=== PATIENT | female | born 1995 | race African-American/Black ===

== ENCOUNTER 2018-07-20 21:47 | Emergency (ER) | payer OTHER ==
[2018-07-20 21:52] VITALS: BP 140/74; PULSE 64; TEMP 98.4; BMI 34.9
[2018-07-21] MEDS ORDERED: ACETAMINOPHEN 1000 MG/100 ML VIAL (NON FORMULARY) IVPB ONE (01:20)
--- NOTE | 2018-07-21 01:21 | PDOC ---
History of Present Illness - General Chief Complaint: Chest Pain Stated Complaint: CHEST PAIN Time Seen by Provider: 07/21/18 00:42 - History of Present Illness Initial Comments: 23 yo F w a hx of asthma, ITP, pre-eclampsia here with 3 hours of chest pain described as pressure like with mild radiation to the jaw. She also experiences pain upon deep inspiration and has difficultly taking a deep breath. She states the pain is associated with nausea but no emesis. She denies diaphoreiss. Of note - She also states she has significant dyspnea with exertion, and has needed to sleep with 2 to 3 pillows at night otherwise she feels like she is choking. Denies recent fevers, chills, infections. Denies back pain, abdominal pain, urinary or bowel complaints. Allergies: sulfa drugs, peanuts, dairy foods. PCP: None Social Hx: Denies alcohol, cigarette, or illicit drug use. Past History - Past Medical History Allergies/Adverse Reactions: Allergies Allergy/AdvReac Type Severity Reaction Status Date / Time No Known Allergies Allergy Verified 07/20/18 21:52 Asthma: Yes COPD: No Other medical history: ITP - Suicide/Smoking/Psychosocial Hx Smoking History: Never smoked Review of Systems - Review of Systems Comments:: CONSTITUTIONAL: Absent: fever, no chills, no fatigue EYES: Absent: visual changes ENT: Absent: ear pain, no sore throat CARDIOVASCULAR: Present: chest pain, palpitations RESPIRATORY: Present: SOB Absent: cough GI: Present: Nausea Absent: abdominal pain, no vomiting, no constipation, no diarrhea GENITOURINARY: Absent: dysuria, no frequency, no hematuria MUSKULOSKELETAL: Absent: back pain, no arthralgia, no myalgia SKIN: Absent: rash NEURO: Absent: headache *Physical Exam - Vital Signs Last Vital Signs Temp Pulse Resp BP Pulse Ox 98.4 F 64 18 140/74 97 07/20/18 21:50 07/20/18 21:50 07/20/18 21:50 07/20/18 21:50 07/20/18 21:50 - Physical Exam Comments: GENERAL: Well-appearing, well-nourished. No apparent distress. HEENT: Normocephalic, atraumatic. PERRL, EOM intact. CARDIOVASCULAR: Normal S1, S2. Regular rate and rhythm. PULMONARY: Clear to auscultation bilaterally. ABDOMEN: Soft, non-distended, non-tender. EXTREMITIES: Normal ROM in all four extremities. No gross deformities. SKIN: Warm, dry. No rash NEUROLOGICAL: No focal neurological deficits. ED Treatment Course - LABORATORY CBC & Chemistry Diagram: 07/21/18 01:48 07/21/18 01:48 Medical Decision Making - Medical Decision Making 23 yo F w a hx of asthma, ITP, pre-eclampsia here with 3 hours of chest pain, SOB, dyspnea w exertion. DD inlcludes but not limited to: ACS, pneumothorax, heart failure, MSK pain, heart failure. Plan: Cbc, Cmp, trop, bnp, dimer, ekg, acetaminophen, CXR, re-assess. EKG - normal sinus. No signs of ACS. Labs unremarkable. Trop negative. Chest pain went away after tylenol. Patient is still mildly short of breath. Will give duoneb and see if her SOB resolves. Patient is no longer SOB after duoneb. Will DC w referall for a PCP . This was likely an asthma exacerbation. *DC/Admit/Observation/Transfer Diagnosis at time of Disposition: Chest pain, Dyspnea, Asthma exacerbation - Discharge Dispostion Disposition: HOME Condition at time of disposition: Improved Decision to Admit order: No - Referrals Referrals: Tony Warren MD [Staff Physician] - - Patient Instructions Printed Discharge Instructions: Asthma -- Child, DI for Chest Pain Additional Instructions: You came into the ER with chest pain and shortness of breath. We believe you were having an asthma exacerbation here in the ER. Please make sure to schedule a follow up appointment with a primary care doctor in the next 3 to 5 days. We are giving you the number for one you can call and schedule an appointment with. Come back to the emergency room if you experience worsening chest pain, SOB, difficulty breathing or any other concerns. Thank you for coming to the [facility] ER. We hope you feel better soon! Print Language: BENGALI - Post Discharge Activity
[2018-07-21] MEDS ORDERED: ACETAMINOPHEN INJECTION 100 ML IVPB ONE (01:32)
--- NOTE | 2018-07-21 01:42 | PDOC ---
Attending Attestation - Resident Resident Name: Hiren Lindsey - ED Attending Attestation I have performed the following: I have examined & evaluated the patient, The case was reviewed & discussed with the resident, I agree w/resident's findings & plan, Exceptions are as noted - HPI HPI: 07/21/18 01:40 23 yo female dev substernal chest pain radiating to her left jaw tonight PMH Childbirth w induced vaginal delivery due to pre esclapsia - Physicial Exam PE: 07/21/18 01:42 wnwd 23 yo female with chest pain head ncat neck supple, no jvd lungs cta b/l cvs [id number] abd nontender extremities no edema skin warm and dry neuro axox3,ambulatory,no gross focal neuro deficits psych appropriate - Medical Decision Making 07/21/18 16:[address] Walter pending cxr which was negative IMP atypical chest pain
[2018-07-21 01:56] LABS: BASO % 0.7 % (0-2.0); EOS % 5.1 % (0-4.5); HEMATOCRIT 39.2 % (32.4-45.2); HEMOGLOBIN 12.6 GM/dL (10.7-15.3); LYMPH % 23.4 % (8-40); MCH 28.3 pg (25.7-33.7); MCHC 32.2 g/dl (32.0-36.0); MEAN CELL VOLUME 87.9 fl (80-96); MEAN PLT VOLUME 10.8 fl (7.5-11.1); MONO % 6.8 % (3.8-10.2); PLATELET COUNT 145 K/MM3 (134-434); RBC 4.47 M/mm3 (3.60-5.2); RDW 13.9 % (11.6-15.6); WHITE BLOOD COUNT 13.5 K/mm3 (4.0-10.0)
[2018-07-21 02:21] LABS: ALBUMIN 3.3 g/dl (3.4-5.0); ALK PHOS 168 U/L (45-117); ANION GAP 7 MMOL/L (8-16); BILIRUBIN,TOTAL 0.2 mg/dL (0.2-1); BLOOD UREA NITROGEN 10 mg/dL (7-18); CALCIUM 8.6 mg/dL (8.5-10.1); CHLORIDE 109 mmol/L (98-107); CO2 25 mmol/L (21-32); CREATININE 0.8 mg/dL (0.55-1.3); GLUCOSE,RANDOM 82 mg/dL (74-106); N-TERMINAL BNP 58.2 pg/ml (5-125); POTASSIUM 3.5 mmol/L (3.5-5.1); SGOT/AST 16 U/L (15-37); SGPT/ALT 25 U/L (13-61); SODIUM 141 mmol/L (136-145); TOT PROT 7.5 g/dl (6.4-8.2)
[2018-07-21] MEDS ORDERED: ALBUTEROL SO4 2.5/IPRATROPIUM 0.5 INH SOL 3 ML VIAL.NEB. NEB ONE ×2 (03:11→03:20)
--- NOTE | 2018-07-21 12:34 | EKG ---
Test Reason : Blood Pressure : / mmHG Vent. Rate : 093 BPM Atrial Rate : 093 BPM P-R Int : 132 ms QRS Dur : 082 ms QT Int : 340 ms P-R-T Axes : 059 084 044 degrees QTc Int : 422 ms NORMAL SINUS RHYTHM NORMAL ECG Confirmed by MD SHAWN, ABDIEL ([id number]) on 07/21/2018 12:34:07 PM Referred By: Confirmed By:ABDIEL ESCOBAR MD
== END 2018-07-21 04:14 | disposition home or self-care (01) ==
LOC: JER 21:47
PROC: 3E0F7GC Introduction of Other Therapeutic Substance into Respiratory Tract, Via Natural or Artificial Opening (ICD-10-PCS; principal; 2018-07-20)
PROC: 3E033NZ Introduction of Analgesics, Hypnotics, Sedatives into Peripheral Vein, Percutaneous Approach (ICD-10-PCS; 2018-07-20)
DX: J45.901 Unspecified asthma with (acute) exacerbation (principal)
CPT/HCPCS: 36415; 71046-TC-FY; 80053; 83880; 84484; 84703; 85025; 85379; 93005; 93010; 94640; 96374; 99281-25; J0131

== ENCOUNTER 2018-12-12 23:39 | Emergency (ER) | payer OTHER ==
[2018-12-12 23:53] VITALS: BMI 37.2
[2018-12-13] MEDS ORDERED: SODIUM CHLORIDE 1,000 ML IV STA ×2 (00:18→03:45)
[2018-12-13] MEDS ORDERED: ACETAMINOPHEN 1000 MG/100 ML VIAL (NON FORMULARY) IVPB ONE (00:19)
--- NOTE | 2018-12-13 00:31 | PDOC ---
History of Present Illness - General Chief Complaint: Back Pain Stated Complaint: LOWER BACK PAIN Time Seen by Provider: 12/12/18 23:52 History Source: Patient Exam Limitations: No Limitations - History of Present Illness Travel History: No Initial Comments: 12/13/18 00:26 HISTORY OF PRESENT ILLNESS: 23-year-old woman without significant medical history presents emergency department for evaluation of right mid back pain radiating to her right upper quadrant with nausea and vomiting. Patient reports the pain is been present for the past 3 days been waxing and waning has been more consistent over the past 24 hours. Patient reports she began to feel nauseous and vomited this afternoon. She denies any blood or bile in the vomit and reports was undigested food. Patient has not taken anything for the pain prior to arrival. She denies fevers, chills, hematuria, dysuria. No recent travel or sick contacts. PAST MEDICAL HISTORY: Denies past medical history SURGICAL HISTORY: Denies ALLERGIES: No known drug allergies REVIEW OF SYSTEMS General/Constitutional: Denies fever or chills. Denies weakness, weight change. HEENT: Denies change in vision. Denies ear pain or discharge. Denies sore throat. Cardiovascular: Denies chest pain or shortness of breath. Respiratory: Denies cough, wheezing, or hemoptysis. Gastrointestinal: see HPI Genitourinary: Denies dysuria, frequency, or change in urination. Musculoskeletal: Denies joint or muscle swelling or pain. Denies neck or back pain. Skin and breasts: Denies rash or easy bruising. Neurologic: Denies headache, vertigo, loss of consciousness, or loss of sensation. Psychiatric: Denies depression or anxiety. Endocrine: Denies increased thirst. Denies abnormal weight change. Hematologic/Lymphatic: Denies anemia, easy bleeding, or history of blood clots. Allergic/Immunologic: Denies hives or skin allergy. Denies latex allergy. PHYSICAL EXAM General Appearance: Well-appearing, appropriately dressed. No apparent distress , no intoxication. HEENT: EOMI, PERRLA, normal ENT inspection, normal voice, TMs normal, pharynx normal. No conjunctival pallor. No photophobia, scleral icterus. Neck: Supple. Trachea midline. No tenderness, rigidity, carotid bruit, stridor , lymphadenopathy, or thyromegaly. Respiratory/Chest: Lungs CTAB. No shortness of breath, chest tenderness, respiratory distress, accessory muscle use. No crackles, rales, rhonchi, stridor , wheezing, dullness Cardiovascular: RRR. S1, S2. No JVD, murmur, bradycardia, tachycardia. Vascular Pulses: Dorsalis-Pedis (R): 2+, Dorsalis-Pedis (L): 2+ Gastrointestinal/Abdominal: Normal bowel sounds. Abdomen soft, non-distended. RUQ tenderness with guarding. (+)Fernández's. No organomegaly, pulsatile mass, hernia, hepatomegaly, splenomegaly. Lymphatic: No adenopathy, tenderness. Musculoskeletal/Extremities: Normal inspection. FROM of all extremities, normal capillary refill. Pelvis Stable. No CVA tenderness. No tenderness to extremities, pedal edema, swelling, erythema or deformity. Integumentary: Appropriate color, dry, warm. 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 Fully oriented, alert. Appropriate mood/affect. Motor strength 5/5. No appreciable EOM palsy, facial droop or sensory deficit. Past History - Past Medical History Allergies/Adverse Reactions: Allergies Allergy/AdvReac Type Severity Reaction Status Date / Time No Known Allergies Allergy Verified 12/12/18 23:52 Home Medications: Ambulatory Orders NK [No Known Home Medication] 12/12/18 Asthma: Yes COPD: No - Suicide/Smoking/Psychosocial Hx Smoking History: Never smoked Have you smoked in the past 12 months: No Information on smoking cessation initiated: No Hx Alcohol Use: No Drug/Substance Use Hx: No *Physical Exam - Vital Signs Last Vital Signs Temp Pulse Resp BP Pulse Ox 98.9 F 73 20 120/82 99 12/12/18 23:52 12/12/18 23:52 12/12/18 23:52 12/12/18 23:52 12/12/18 23:52 Moderate Sedation - Procedure Monitoring Vital Signs: Procedure Monitoring Vital Signs Temperature 98.9 F 12/12/18 23:52 Pulse Rate 73 12/12/18 23:52 Respiratory Rate 20 12/12/18 23:52 Blood Pressure 120/82 12/12/18 23:52 O2 Sat by Pulse Oximetry (%) 99 12/12/18 23:52 ED Treatment Course - LABORATORY CBC & Chemistry Diagram: 12/13/18 00:31 12/13/18 04:45 - RADIOLOGY Radiology Studies Ordered: Category Date Time Status ABDOMEN US -LIMITED [US] Stat Ultrasound 12/13/18 00:19 Ordered Medical Decision Making - Medical Decision Making 12/13/18 00:29 A/P: 23-year-old woman with right mid back and right upper quadrant pain for 3 days Right upper quadrant tenderness noted with guarding Positive Fernández sign Differential diagnosis includes but not limited to cholecystitis, cholelithiasis , pancreatitis, renal calculi, infection Labs, urine, gallbladder ultrasound, IV Tylenol 12/13/18 03:15 EKG: Sinus rhythm with rate of 62. Normal intervals noted. No ischemic changes present. Laboratory testing notable for creatinine 1.5, GFR 43.42. Urinalysis reveals 3+ blood. UA is not suggestive of infection. Spiral CT to rule out stone. 12/13/18 03:31 Ultrasound as read by imaging program manager environmental planning: Unremarkable contracted gallbladder, liver, right kidney visualized aorta and pancreas. Normal common duct diameter 3 mm 12/13/18 05:07 CT scan is read by imaging program manager environmental planning: No nephrolithiasis, ureterolithiasis or obstructive uropathy. No bladder calculi. Unremarkable pancreas and gallbladder. No bowel obstruction colitis or free air. Normal appendix. Small physiologic free fluid in cul-de-sac. Repeat basic metabolic Reassess 12/13/18 05:56 Repeat creatinine 1.2. Patient reports 2 taking Naprosyn every 6 hours for the past 3 days. Patient was instructed on correct Naprosyn use and was told to abstain from use for the next week. I'll discharge the patient home to follow- up with the [facility] internal medicine clinic. I discussed the physical exam findings, ancillary test results and final diagnoses with the patient. I answered all of the patient's questions. The patient was satisfied with the care received and felt comfortable with the discharge plan and treatment plan. The patient will call their primary care physician within 24 hours to arrange follow-up and will return to the Emergency Department with any new, persistent or worsening symptoms. *DC/Admit/Observation/Transfer Diagnosis at time of Disposition: Mid back pain on right side - Discharge Dispostion Disposition: HOME Condition at time of disposition: Fair Decision to Admit order: No - Referrals Referrals: [facility] [place] [facility] [place] [Provider Group] - Patient Instructions Additional Instructions: Rest. Take Tylenol as needed for pain. Follow manufacturers instructions for appropriate dosage. Warm moist heat applied to your back may help alleviate pain. Your emergency department visit is incomplete and 2 you follow-up with his doctor for continued evaluation. Return to emergency department for discoloration of the feet, numbness or tingling to the foot, worsening pain, or any other concerns. Thank you very much for choosing us to provide your emergent healthcare needs. - Post Discharge Activity Forms/Work/School Notes: Back to Work
[2018-12-13 00:50] LABS: BASO % 0.8 % (0-2.0); HEMATOCRIT 34.5 % (32.4-45.2); HEMOGLOBIN 11.6 GM/dL (10.7-15.3); LYMPH % 29.2 % (8-40); MCH 30.6 pg (25.7-33.7); MCHC 33.8 g/dl (32.0-36.0); MEAN CELL VOLUME 90.7 fl (80-96); MEAN PLT VOLUME 10.8 fl (7.5-11.1); MONO % 7.7 % (3.8-10.2); NEUT % 56.3 % (42.8-82.8); PLATELET COUNT 142 K/MM3 (134-434); RDW 12.7 % (11.6-15.6); WHITE BLOOD COUNT 9.7 K/mm3 (4.0-10.0)
[2018-12-13 01:15] LABS: HCG,QUALITATIVE URINE Negative
[2018-12-13 01:18] LABS: URINE APPEARANCE CLEAR; URINE BILIRUBIN NEGATIVE (<2.0 mg/dL); URINE COLOR LTYELLOW; URINE GLUCOSE (UA) NEGATIVE (NEGATIVE); URINE KETONE NEGATIVE (NEGATIVE); URINE LEUK ESTERASE TRACE (NEGATIVE); URINE NITRITE NEGATIVE (NEGATIVE); URINE PROTEIN NEGATIVE (NEGATIVE); URINE UROBILINOGEN NEGATIVE mg/dL (0.2-1.0)
[2018-12-13 01:20] LABS: EPI CELLS FEW /HPF (FEW)
[2018-12-13] MEDS ORDERED: ACETAMINOPHEN INJECTION 100 ML IVPB ONE (01:22)
[2018-12-13 01:50] LABS: ALBUMIN 3.3 g/dl (3.4-5.0); ALK PHOS 121 U/L (45-117); ANION GAP 5 MMOL/L (8-16); BILIRUBIN,TOTAL 0.2 mg/dL (0.2-1); BLOOD UREA NITROGEN 17 mg/dL (7-18); CALCIUM 8.8 mg/dL (8.5-10.1); CHLORIDE 109 mmol/L (98-107); CO2 26 mmol/L (21-32); CREATININE 1.5 mg/dL (0.55-1.3); GLUCOSE,RANDOM 84 mg/dL (74-106); LIPASE 171 U/L (73-393); POTASSIUM 4.2 mmol/L (3.5-5.1); SGOT/AST < 3 U/L (15-37); SGPT/ALT 46 U/L (13-61); SODIUM 141 mmol/L (136-145); TOT PROT 7.5 g/dl (6.4-8.2)
[2018-12-13] MEDS ORDERED: morphine CARPU-JECT 2 MG/1 ML DISP.SYRIN IVPUSH ONE (03:29)
[2018-12-13] MEDS ORDERED: MORPHINE SULFATE 2 MG/ML VIAL ONE (03:51)
[2018-12-13 05:52] LABS: ANION GAP 6 MMOL/L (8-16); BLOOD UREA NITROGEN 18 mg/dL (7-18); CALCIUM 7.6 mg/dL (8.5-10.1); CHLORIDE 113 mmol/L (98-107); CO2 24 mmol/L (21-32); CREATININE 1.2 mg/dL (0.55-1.3); GLUCOSE,RANDOM 87 mg/dL (74-106); POTASSIUM 4.1 mmol/L (3.5-5.1); SODIUM 142 mmol/L (136-145)
[2018-12-13 06:12] VITALS: BP 136/88; PULSE 78; TEMP 98
--- NOTE | 2018-12-14 10:42 | EKG ---
Test Reason : Blood Pressure : / mmHG Vent. Rate : 062 BPM Atrial Rate : 062 BPM P-R Int : 142 ms QRS Dur : 084 ms QT Int : 372 ms P-R-T Axes : 060 087 052 degrees QTc Int : 377 ms NORMAL SINUS RHYTHM WITH SINUS ARRHYTHMIA NORMAL ECG WHEN COMPARED WITH ECG OF 21-JUL-2018 01:41, VENT. RATE HAS DECREASED BY 31 BPM Confirmed by SIOMARA BUCHANAN, RAZ ([id number]) on 12/14/2018 10:42:13 AM Referred By: Confirmed By:RAZ STRINGER MD
== END 2018-12-13 06:27 | disposition home or self-care (01) ==
LOC: JER 23:39
PROC: 3E0337Z Introduction of Electrolytic and Water Balance Substance into Peripheral Vein, Percutaneous Approach (ICD-10-PCS; principal; 2018-12-12)
PROC: 3E033NZ Introduction of Analgesics, Hypnotics, Sedatives into Peripheral Vein, Percutaneous Approach (ICD-10-PCS; 2018-12-12)
PROC: 3E033NZ Introduction of Analgesics, Hypnotics, Sedatives into Peripheral Vein, Percutaneous Approach (ICD-10-PCS; 2018-12-12)
DX: M54.89 Other dorsalgia (principal); R31.9 Hematuria, unspecified
CPT/HCPCS: 36415; 74176-TC; 76705-TC; 80048; 80053; 81003; 81015; 83690; 84703; 85025; 87086; 93005; 93010; 96365; 96374; 96375; 99283-25; J0131; J7030

== ENCOUNTER 2018-12-14 14:24 | Emergency (ER) | payer OTHER ==
[2018-12-14 14:30] VITALS: BP 132/81; PULSE 83; TEMP 98.7; BMI 37.4
--- NOTE | 2018-12-14 14:31 | PDOC ---
Rapid Medical Evaluation Time Seen by Provider: 12/14/18 14:26 Medical Evaluation: Allergies Allergy/AdvReac Type Severity Reaction Status Date / Time No Known Allergies Allergy Verified 12/12/18 23:52 Vital Signs Temp Pulse Resp BP Pulse Ox 98.7 F 83 20 132/81 100 12/14/18 14:27 12/14/18 14:27 12/14/18 14:27 12/14/18 14:27 12/14/18 14:27 12/14/18 14:30 I have performed a brief in-person evaluation of this patient. The patient presents with a chief complaint of lower back pain. Patient seen 2 days ago for the same with negative cat scan and ultrasound. States pain medication not effective Pertinent physical exam findings nad even and unlabored breathing no mid spinal tenderness I have ordered the following none The patient will proceed to the ED for further evaluation.
[2018-12-14] MEDS ORDERED: MECLIZINE HCL 25 MG TABLET (FP) PO ONE (15:36)
[2018-12-14] MEDS ORDERED: ONDANSETRON *ODT* 4 MG TABLET SL ONE (15:36)
--- NOTE | 2018-12-14 15:44 | PDOC ---
History of Present Illness - General Chief Complaint: Back Pain Stated Complaint: LOWER BACK PAIN Time Seen by Provider: 12/14/18 14:26 - History of Present Illness Initial Comments: 12/14/18 15:40 23-year-old female with a past medical history significant for asthma recently seen in the emergency room for back pain presents for reevaluation today, she was seen yesterday for ongoing back pain without radicular symptoms nausea and vertiginous symptoms. Past History - Past Medical History Allergies/Adverse Reactions: Allergies Allergy/AdvReac Type Severity Reaction Status Date / Time No Known Allergies Allergy Verified 12/12/18 23:52 Home Medications: Ambulatory Orders Albuterol Sulfate [Proair Hfa] 8.5 gm IH ASDIR 12/14/18 Meclizine HCl [Antivert -] 25 mg PO TID #90 tablet 12/14/18 Anemia: Yes (ITP) Asthma: Yes COPD: No - Reproductive History Cervical CA: No Dysfunctional Uterine Bleeding: No Ectopic : No Endometrial CA: No Polycystic Ovaries: No Therapeutic (s) & number: No Tubal Ligation: No - Immunization History Td Vaccination: Yes TDAP Vaccination: Yes Immunization Up to Date: Yes - Suicide/Smoking/Psychosocial Hx Smoking History: Never smoked Have you smoked in the past 12 months: No Information on smoking cessation initiated: No Hx Alcohol Use: No Drug/Substance Use Hx: No Review of Systems - Review of Systems Constitutional: No: Chills, Diaphoresis, Fever, Night Sweats ABD/GI: Yes: Nausea, Vomiting Musculoskeletal: Yes: Back Pain Neurological: Yes: Dizziness *Physical Exam - Vital Signs Last Vital Signs Temp Pulse Resp BP Pulse Ox 98.7 F 83 20 132/81 100 12/14/18 14:27 12/14/18 14:27 12/14/18 14:27 12/14/18 14:27 12/14/18 14:27 - Physical Exam Comments: 12/14/18 15:41 HEAD: NC/AT EYES: Conjuntiva clear Ears: Canals and TM's normal NOSE: No d/c THROAT: Moist mucous membrances, oral pharanx clear, uvula midline NECK: Supple without adenopathy CARDIAC: S1 S2 LUNGS: CTA Full and Equal breath sounds ABDOMEN: Soft NT ND, No RUQ tenderness, no CVAT MS: Full ROM in all joints without edema NEUROLOGIC: No gross sensory or motor deficits, NVID SKIN: Normal color and temperature no lesions or rashes Moderate Sedation - Procedure Monitoring Vital Signs: Procedure Monitoring Vital Signs Temperature 98.7 F 12/14/18 14:27 Pulse Rate 83 12/14/18 14:27 Respiratory Rate 20 12/14/18 14:27 Blood Pressure 132/81 12/14/18 14:27 O2 Sat by Pulse Oximetry (%) 100 12/14/18 14:27 Medical Decision Making - Medical Decision Making 12/14/18 15:42 23-year-old female with now vertiginous symptoms on top of her lower back pain. She has no CVA tenderness I do not suspect Pylo or stone HD stable. 12/14/18 15:43 12/14/18 18:04 vertiginous symptoms improved with Antivert. There is no UTI. Patient is on her menses. I will refer her to neurology and have her follow-up with her primary care physician as well. *DC/Admit/Observation/Transfer Diagnosis at time of Disposition: Vertigo - Discharge Dispostion Disposition: HOME Condition at time of disposition: Stable Decision to Admit order: No - Referrals Referrals: Anton Zimmerman MD [Staff Physician] - - Patient Instructions Printed Discharge Instructions: Vertigo, DI for Vertigo, Benign Paroxysmal Positional Vertigo Additional Instructions: Please take the Antivert as directed. Return to the emergency room for worsening symptoms and follow-up with neurology as well as her primary care physician in one to 2 days for further evaluation and treatment options. - Post Discharge Activity
[2018-12-14] MEDS ORDERED: ONDANSETRON *ODT* 4 MG TABLET ONE (15:46)
[2018-12-14] MEDS ORDERED: MECLIZINE HCL 25 MG TABLET (FP) ONE (15:47)
[2018-12-14 16:22] LABS: HCG,QUALITATIVE URINE NEGATIVE
[2018-12-14 16:27] LABS: PH,URINE 5.5 (5.0-8.0); URINE APPEARANCE Clear; URINE BILIRUBIN Negative (<2.0 mg/dL); URINE COLOR Yellow; URINE GLUCOSE (UA) Negative (NEGATIVE); URINE KETONE Negative (NEGATIVE); URINE LEUK ESTERASE 1+ (NEGATIVE); URINE NITRITE Negative (NEGATIVE); URINE PROTEIN Negative (NEGATIVE); URINE UROBILINOGEN 0.2 mg/dL (0.2-1.0)
[2018-12-14] MEDS ORDERED: ACETAMINOPHEN 500 MG TABLET (FP) PO ONE (17:02)
[2018-12-14] MEDS ORDERED: ACETAMINOPHEN 500 MG TABLET (FP) ONE (17:15)
[2018-12-14 17:55] LABS: EPI CELLS 1+ /HPF (FEW); URINE BACTERIA 1+ /hpf (NONE SEEN)
== END 2018-12-14 18:56 | disposition home or self-care (01) ==
LOC: JERFT 14:24
DX: M54.5 Low back pain (principal); J45.909 Unspecified asthma, uncomplicated; D69.3 Immune thrombocytopenic purpura
CPT/HCPCS: 81003; 81015; 84703; 87086; 99281-25; Q0162

== ENCOUNTER 2019-02-14 00:33 | Emergency (ER) | payer OTHER ==
[2019-02-14 00:40] VITALS: TEMP 98.2; BMI 34.9
--- NOTE | 2019-02-14 00:56 | PDOC ---
History of Present Illness - General Chief Complaint: Asthma Stated Complaint: ASTHMA Time Seen by Provider: 02/14/19 00:55 Past History - Past Medical History Allergies/Adverse Reactions: Allergies Allergy/AdvReac Type Severity Reaction Status Date / Time Sulfa (Sulfonamide Allergy Verified 02/14/19 00:41 Antibiotics) Home Medications: Ambulatory Orders Albuterol Sulfate [Proair Hfa] 8.5 gm IH ASDIR 12/14/18 Meclizine HCl [Antivert -] 25 mg PO TID #90 tablet 12/14/18 Anemia: Yes (ITP) Asthma: Yes COPD: No - Reproductive History Cervical CA: No Dysfunctional Uterine Bleeding: No Ectopic : No Endometrial CA: No Polycystic Ovaries: No Therapeutic (s) & number: No Tubal Ligation: No - Immunization History Td Vaccination: Yes TDAP Vaccination: Yes Immunization Up to Date: Yes - Suicide/Smoking/Psychosocial Hx Smoking History: Never smoked Have you smoked in the past 12 months: No Information on smoking cessation initiated: No Hx Alcohol Use: No Drug/Substance Use Hx: No *Physical Exam - Vital Signs Last Vital Signs Temp Pulse Resp BP Pulse Ox 98.2 F 90 22 H 121/89 100 02/14/19 00:39 02/14/19 00:39 02/14/19 00:39 02/14/19 00:39 02/14/19 00:39
[2019-02-14] MEDS ORDERED: SODIUM CHLORIDE 0.9% 500 ML INFUS.BAG IV ONE (01:06)
[2019-02-14 03:23] VITALS: BP 119/87; PULSE 86
[2019-02-14] MEDS ORDERED: ALBUTEROL SO4 8 GM HFA INHALER IH SCH (06:00)
== END 2019-02-14 02:35 | disposition home or self-care (01) ==
LOC: JER 00:33
PROC: 3E0337Z Introduction of Electrolytic and Water Balance Substance into Peripheral Vein, Percutaneous Approach (ICD-10-PCS; principal; 2019-02-14)
DX: J45.41 Moderate persistent asthma with (acute) exacerbation (principal)
CPT/HCPCS: 84703; 96360; 99282-25

== ENCOUNTER 2019-02-19 01:22 | Emergency (ER) | payer OTHER ==
--- NOTE | 2019-02-19 01:44 | PDOC ---
History of Present Illness - General Chief Complaint: Shortness of Breath Stated Complaint: ASTHMA Time Seen by Provider: 02/19/19 01:32 History Source: Patient Exam Limitations: No Limitations ( ) - History of Present Illness Initial Comments: 02/19/19 01:41 Patient is a 24 year old female with history of asthma presents with complaint of shortness of breath. She endorses symptoms began earlier this evening with sudden onset. Patient unable to endorse inciting event. Patient admits associated chest tightness. She admits the symptoms are similar to her previous asthma exacerbations. She did not use her ventolin inhaler today. Patient admits that she has not been taking her Prednisone prescribed on past hospitalization as the medications have not been delivered yet. She denies sick contacts, subjective fevers, chills, shortness of breath, chest pain, palpitations, abdominal pain, nausea, vomiting. Past History - Past Medical History Allergies/Adverse Reactions: Allergies Allergy/AdvReac Type Severity Reaction Status Date / Time Sulfa (Sulfonamide Allergy Verified 02/19/19 01:47 Antibiotics) Home Medications: Ambulatory Orders Albuterol Sulfate Inhaler - [Ventolin Hfa Inhaler -] 1 - 2 inh PO Q4H #1 inhaler 02/14/19 predniSONE [Deltasone -] 40 mg PO DAILY #10 tablet 02/14/19 Anemia: Yes (ITP) Asthma: Yes COPD: No - Reproductive History Cervical CA: No Dysfunctional Uterine Bleeding: No Ectopic : No Endometrial CA: No Polycystic Ovaries: No Therapeutic (s) & number: No Tubal Ligation: No - Immunization History Td Vaccination: Yes TDAP Vaccination: Yes Immunization Up to Date: Yes - Suicide/Smoking/Psychosocial Hx Smoking History: Never smoked Have you smoked in the past 12 months: No Hx Alcohol Use: No Drug/Substance Use Hx: No Review of Systems - Review of Systems Able to Perform ROS?: Yes Is the patient limited [place] proficient: Yes Constitutional: No: Chills, Diaphoresis, Fever, Weakness HEENTM: No: Recent change in vision, Nose Congestion, Nose Bleeding, Throat Pain , Throat Swelling, Difficulty Swallowing Respiratory: Yes: Shortness of Breath. No: Cough, Stridor, Wheezing, Productive cough, Hemoptysis Cardiac (ROS): No: Chest Pain, Lightheadedness, Palpitations, Syncope ABD/GI: No: Abdominal Distended, Blood Streaked Bowels, Constipated, Diarrhea Neurological: No: Headache, Numbness, Paresthesia, Weakness *Physical Exam - Physical Exam General Appearance: Yes: Nourished, Appropriately Dressed. No: Apparent Distress HEENT: positive: EOMI, ELVIA. negative: Scleral Icterus (R), Scleral Icterus (L) , Pharyngeal Erythema, Tonsillar Exudate, Nasal Congestion Neck: positive: Trachea midline, Supple. negative: Lymphadenopathy (R), Lymphadenopathy (L) Respiratory/Chest: positive: Lungs Clear, Normal Breath Sounds, Decreased Breath Sounds. negative: Respiratory Distress, Crackles, Rales, Rhonchi, Stridor, Wheezing Cardiovascular: positive: Regular Rhythm, Regular Rate, S1, S2. negative: Murmur Neurologic: positive: public health representative II-XII NML intact, Fully Oriented, Alert, Normal Mood/ Affect, Motor Strength 02/07 Medical Decision Making - Medical Decision Making 02/19/19 01:55 Patient is a 24 year old female with history of asthma presents with complaint of shortness of breath. She endorses symptoms began earlier this evening with sudden onset. Symptoms likely secondary to asthma exacerbation. Patient admits that she has not been taking her Prednisone prescribed on past hospitalization as the medications have not been delivered yet. Will treat asthma exacerbation Duonebs x4 amps Prednisone 60mg PO one time dose Reassess breathing. 02/19/19 03:09 Patient endorses significant improvement of her breathing. Saturating 99% ambient air Will discharge home. Patient states she has ventolin rescue inhaler at home. She endorses she will be recieving delivery of prednisone prescribed on prior ED visit tomorrow. Counselled to call primary care provider to schedule appointment tomorrow for follow up. Patient in agreement with plan. All questions, concerns addressed and answered. *DC/Admit/Observation/Transfer Diagnosis at time of Disposition: Asthma exacerbation - Discharge Dispostion Disposition: HOME Condition at time of disposition: Stable Decision to Admit order: No - Referrals - Patient Instructions Printed Discharge Instructions: DI for Asthma -- Adult Additional Instructions: You were seen in the hospital for asthma exacerbation. You were treated with steroids, and breathing treatments which improved the breathing. You are being discharged home. Continue taking your home medications as directed. You will take steroid Prednisone 40mg daily for 5 days (prescribed during your previous emergency room visit) Continue using your nebulizer treatments as directed. Follow up with your primary care physician within one- two days after discharge. Return to the nearest Emergency Department if you experience worsening symptoms , subjective fevers, chills, shortness of breath, chest pain, palpitaitons, abdominal pain, nausea, vomiting, fall, loss of consciousness, any trauma. - Post Discharge Activity
[2019-02-19 01:47] VITALS: BP 120/79; TEMP 97.8; BMI 35.9
[2019-02-19] MEDS ORDERED: predniSONE 20 MG TABLET (UD) PO ONE (01:49)
[2019-02-19] MEDS ORDERED: ALBUTEROL SO4 2.5/IPRATROPIUM 0.5 INH SOL 3 ML VIAL.NEB. NEB ONE (02:03)
[2019-02-19] MEDS ORDERED: predniSONE 20 MG TABLET (UD) ONE (02:03)
[2019-02-19] MEDS: ALBUTEROL SO4 2.5/IPRATROPIUM 0.5 INH SOL 3 ML VIAL.NEB. NEB SCH ×3 (02:07→02:36)
--- NOTE | 2019-02-19 02:28 | PDOC ---
Attending Attestation - Resident Resident Name: Johnathon Rodriguez - ED Attending Attestation I have performed the following: I have examined & evaluated the patient, The case was reviewed & discussed with the resident, I agree w/resident's findings & plan, Exceptions are as noted - HPI HPI: 02/19/19 03:18 24F pmh of asthma here with acute asthma exacerbation. Was seen recently for same complaint was not able to fill her prednisone. Required treatment again at home with worsening symptoms. Came to ED for eval and treatment. No other complaints. - Physicial Exam PE: 02/19/19 03:19 Normal wob, good air movement LCTAB - Medical Decision Making 02/19/19 03:19 Asthma exacerbation well appearing after treatment dc with f/u will fill prednisone
[2019-02-19 03:03] VITALS: PULSE 88
== END 2019-02-19 03:09 | disposition home or self-care (01) ==
LOC: JER 01:22
PROC: 3E0F7GC Introduction of Other Therapeutic Substance into Respiratory Tract, Via Natural or Artificial Opening (ICD-10-PCS; principal; 2019-02-19)
DX: J45.901 Unspecified asthma with (acute) exacerbation (principal); Z86.2 Personal history of diseases of the blood and blood-forming organs and certain disorders involving the immune mechanism
CPT/HCPCS: 94640; 99282-25

== ENCOUNTER 2019-04-21 14:21 | Emergency (ER) | payer SELFPAY ==
[2019-04-21 14:29] VITALS: BMI 33.6
--- NOTE | 2019-04-21 14:35 | PDOC ---
Rapid Medical Evaluation Chief Complaint: Chest Pain Time Seen by Provider: 04/21/19 14:27 Medical Evaluation: Allergies Allergy/AdvReac Type Severity Reaction Status Date / Time Sulfa (Sulfonamide Allergy Verified 02/19/19 01:47 Antibiotics) 04/21/19 14:28 I have performed a brief in-person evaluation of this patient. The patient presents with a chief complaint of: paliptaions/ CP mid sternal- had similar episode 2 weeks ago here and cleared. Pertinent physical exam findings: well, No SOB I have ordered the following: UA/ UcG , EKG The patient will proceed to the ED for further evaluation. Discharge Disposition - Discharge Dispostion Condition at time of disposition: Stable - Referrals - Patient Instructions - Post Discharge Activity
--- NOTE | 2019-04-21 16:04 | PDOC ---
History of Present Illness - General Chief Complaint: Chest Pain Stated Complaint: CHEST PAIN Time Seen by Provider: 04/21/19 14:27 History Source: Patient, Old Records Exam Limitations: No Limitations - History of Present Illness Initial Comments: HPI: 24 y/o female presenting to [facility] ER complaining of two hours of substernal chest pressure and palpitations. Pain is non radiating and non reproducible. Endorses feeling lightheaded without syncope or difficulty ambulating. Symptoms started while she was at rest. Reports these symptoms started two years ago just after the of her child. Episodes generally last approx. 30 min before resolving spontaneously. Has never been evaluated by a procurement internship. Social Hx: - EtOH: denies - Tobacco: Denies - Street drugs: Denies - Caffeine intake: one soda per day. - Denies vitamins or supplements Medical Hx: - Asthma - ITP Review of Systems: In addition to that documented in the HPI above, the additional ROS was obtained : Constitutional: Denies fevers, chills, or syncope Head: Denies vision changes ENMT: Denies sore throat CV: Per HPI Resp: Denies SOB GI: Denies vomiting or diarrhea : Denies painful urination MSK: Denies recent trauma Skin: Denies new rashes Neuro: Denies new numbness or tingling or weakness Endocrine: Denies polyuria, weight loss, or night sweats Heme: Denies bleeding or bruising Physical Examination: Constitutional: Well-developed, well-nourished adult female in no acute distress or obvious discomfort. Found sitting upright on hospital chair. Alert and oriented x4. Answered all questions appropriately and completely. Speech was non-labored, non-pressured. Head: Normocephalic. No obvious external signs of trauma. Neck: Supple, trachea is midline. No JVD or thyromegaly. Cardiovascular / Chest: Regular rate and regular rhythm. No murmur, rubs, clicks , or gallops. Peripheral pulses: radial pulses full. No anterior chest wall tenderness. No change in pressure sensation with movement of left arm. Respiratory: Breathing unlabored. Equal chest rise and fall. Clear to auscultation bilaterally. No stridor, no wheezing, no rhonchi. Neuro: Alert and oriented. Moving all four extremities spontaneously. Gait normal. Observed walking unassisted without difficulty. Skin: Warm, dry, and intact. Psych: Affect: appropriate. Mood: normal. MDM: HEART Score for Major Cardiac Events RESULT SUMMARY: 1 points Low Score (0-3 points) Risk of MACE of 0.9-1.7%. INPUTS: History > 0 = Slightly suspicious EKG > 0 = Normal Age > 0 = <45 Risk factors > 1 = 1-2 risk factors (Obesity) Initial troponin > 0 = ?normal limit *Reviewed vital signs, nursing notes, and prior visit documentation (if available). 24 y/o female presenting with nonradiating, non reproducible substernal chest pressure and palpitations. No exertional component. Chronic complaint for past two years since of child. Afebrile. Vitals unremarkable for hypotension or tachycardia. Physical exam as described above. Low suspicion for ACS, PE, arrhythmia, pneumonia, or asthma exacerbation. EKG unremarkable for arrhythmia or ischemic findings. Initial troponin not elevated. Will repeat at three hours given time of onset. CBC unremarkable for leukocytosis or anemia. CMP unremarkable for significant electrolyte derangement. Serum negative. CXR unremarkable for acute cardiopulmonary findings per ED wet read. Radiology report pending. Pt approached physician workstation without difficulty to ask to leave before the repeat troponin drawn because her child was acting up and tired. Discussed the risks and benefits. Pt agreed to stay for test. Repeat EKG unremarkable for ischemic findings or significant changes from initial. Repeat troponin negative. Pt re-evaluated and reports symptoms have resolved. Continue to have low suspicion for ACS. Provided cardiology referral. Discussed imaging and laboratory results with pt. Answered all questions. Provided return precautions. Pt expressed verbal understanding and agreement with plan to discharge home with outpatient follow up. Provided copies of results and EKGs. Masood Feldman M.D., PGY2 Emergency Medicine Resident Past History - Past Medical History Allergies/Adverse Reactions: Allergies Allergy/AdvReac Type Severity Reaction Status Date / Time Sulfa (Sulfonamide Allergy Verified 02/19/19 01:47 Antibiotics) Home Medications: Ambulatory Orders Albuterol Sulfate Inhaler - [Ventolin Hfa Inhaler -] 1 - 2 inh PO Q4H #1 inhaler 02/14/19 Anemia: Yes (ITP) Asthma: Yes COPD: No - Reproductive History Cervical CA: No Dysfunctional Uterine Bleeding: No Ectopic : No Endometrial CA: No Polycystic Ovaries: No Therapeutic (s) & number: No Tubal Ligation: No - Immunization History Td Vaccination: Yes TDAP Vaccination: Yes Immunization Up to Date: Yes - Suicide/Smoking/Psychosocial Hx Smoking History: Never smoked Have you smoked in the past 12 months: No Information on smoking cessation initiated: No Hx Alcohol Use: No Drug/Substance Use Hx: No *Physical Exam - Vital Signs Last Vital Signs Temp Pulse Resp BP Pulse Ox 98.4 F 92 H 18 131/78 98 04/21/19 14:26 04/21/19 14:26 04/21/19 14:26 04/21/19 14:26 04/21/19 15:16 ED Treatment Course - LABORATORY CBC & Chemistry Diagram: 04/21/19 16:00 04/21/19 16:00 - RADIOLOGY Radiology Studies Ordered: Category Date Time Status CHEST PA & LAT [RAD] Stat Radiology 04/21/19 15:54 Ordered *DC/Admit/Observation/Transfer Diagnosis at time of Disposition: Atypical chest pain - Discharge Dispostion Condition at time of disposition: Improved Decision to Admit order: No - Referrals Referrals: Ludin Matthews MD [Staff Physician] - - Patient Instructions Printed Discharge Instructions: DI for Atypical Chest Pain Additional Instructions: You were seen today for palpitations and chest pressure. Your blood work, EKG, and a chest xray did not show signs of an immediate life threat. Your pain is not likely to be from your heart or lungs. It is possibly a muscular pain or a condition called pleurisy. Follow up with a procurement internship within the next 2-3 days. I have placed a referral for you to see Dr. Matthews. You will need to call to make an appointment. The number is included in this packet. A copy of todays results are attached to this packet. Take it to the appointment so your doctor can review them. You can also follow up with your primary care doctor. You will need to call to make an appointment. The number is included in this packet. A copy of todays results are attached to this packet. Take it to the appointment so your doctor can review them. Go to the nearest emergency department if your condition worsens or you feel like you need additional emergency evaluation. Print Language: ETHIOPIAN - Post Discharge Activity Forms/Work/School Notes: Back to Work
[2019-04-21 16:19] LABS: BASO % 0.9 % (0-2.0); EOS % 9.3 % (0-4.5); HEMATOCRIT 35.3 % (32.4-45.2); HEMOGLOBIN 11.4 GM/dL (10.7-15.3); LYMPH % 29.9 % (8-40); MCH 29.1 pg (25.7-33.7); MCHC 32.4 g/dl (32.0-36.0); MEAN CELL VOLUME 89.8 fl (80-96); MEAN PLT VOLUME 9.7 fl (7.5-11.1); MONO % 6.4 % (3.8-10.2); NEUT % 53.5 % (42.8-82.8); PLATELET COUNT 168 K/MM3 (134-434); RBC 3.93 M/mm3 (3.60-5.2); RDW 13.6 % (11.6-15.6); WHITE BLOOD COUNT 9.3 K/mm3 (4.0-10.0)
[2019-04-21] MEDS ORDERED: SODIUM CHLORIDE 0.9% 500 ML INFUS.BAG IV ONE (16:51)
[2019-04-21 16:57] LABS: ALBUMIN 3.4 g/dl (3.4-5.0); BILIRUBIN,TOTAL 0.5 mg/dL (0.2-1); CALCIUM 8.9 mg/dL (8.5-10.1); POTASSIUM 3.8 mmol/L (3.5-5.1)
--- NOTE | 2019-04-21 18:09 | PDOC ---
Documentation entered by Sisi Horne SCRIBE, acting as scribe for Sandra Estrada MD. Sandra Estrada MD: This documentation has been prepared by the Ozzie galloway Brenda, SCRIBE, under my direction and personally reviewed by me in its entirety. I confirm that the documentation accurately reflects all work, treatment, procedures, and medical decision making performed by me. Attending Attestation - Resident Resident Name: Masood Feldman - ED Attending Attestation I have performed the following: I have examined & evaluated the patient, The case was reviewed & discussed with the resident, I agree w/resident's findings & plan, Exceptions are as noted - HPI HPI: 04/21/19 16:33 The patient is a 27 year old female, with a significant PMH of asthma and ITP, who presents to the emergency department with 2 hours of palpitations and chest pressure, with no radiation, commencing while at rest. The patient states feeling lightheaded and experiencing difficulty ambulating. Patient notes having similar episodes, ever since she had her child, 2 years ago, noting that episodes usually last 30 minutes. The patient denies any shortness of breath.Denies fever, chills, nausea, vomiting, diarrhea and constipation. Denies dysuria, frequency, urgency and hematuria. Allergies: Sulfonamide antibiotics Past surgical history: Not reported Social history: denies tobacco use, alcohol use or illicit drug use. PCP: Not on staff - Physicial Exam PE: 04/21/19 18:01 GENERAL: The patient is in no acute distress. ENT: Ears normal, nares patent, oropharynx clear without exudates. Moist mucous membranes. NECK: Normal range of motion, supple LUNGS: Breath sounds equal, clear to auscultation bilaterally. No wheezes, and no crackles. HEART:Regular rate and rhythm, normal S1 and S2 without murmur, rub or gallop. ABDOMEN: Soft, nontender, normoactive bowel sounds. EXTREMITIES: Normal range of motion, no edema. NEUROLOGICAL: Cranial nerves II through XII grossly intact. Normal speech. No focal neurological deficits. SKIN: Warm, Dry, normal turgor, no rashes or lesions noted. - Medical Decision Making 04/21/19 15:59 24 yo F presenting with palpitations x 2 hours Chest discomfort Has had this in the past She has seen her pmd, no diagnosis EKG - NSR rate of 80 bpm, axis nml, intervals nml, no st elevation or depression 04/21/19 18:01 Laboratory Tests 04/21/19 04/21/19 04/21/19 16:00 16:00 16:00 WBC 9.3 Hgb 11.4 Hct 35.3 Plt Count 168 BUN 8.0 Creatinine 1.0 Troponin I < 0.02 TSH 1.06 Serum , Qual 04/21/19 16:00 WBC Hgb Hct Plt Count BUN Creatinine Troponin I TSH Serum , Qual Negative 04/21/19 18:02 Repeat trop Anticipate discharge Signed out to overnight team Pt may have an arrhythmia, not captured on EKG Pt asked to follow up with Cardiology for Holter or Event Monitor Return to the ER for any other concerns or complaints
[2019-04-21 20:14] VITALS: BP 129/79; PULSE 74; TEMP 98.9
--- NOTE | 2019-04-22 15:19 | EKG ---
Test Reason : Blood Pressure : / mmHG Vent. Rate : 064 BPM Atrial Rate : 064 BPM P-R Int : 144 ms QRS Dur : 084 ms QT Int : 388 ms P-R-T Axes : 072 089 065 degrees QTc Int : 400 ms NORMAL SINUS RHYTHM T WAVE ABNORMALITY, CONSIDER ANTERIOR ISCHEMIA ABNORMAL ECG WHEN COMPARED WITH ECG OF 13-DEC-2018 01:18, NO SIGNIFICANT CHANGE WAS FOUND Confirmed by FELICE FERNANDEZ MD ([id number]) on 04/22/2019 3:19:15 PM Referred By: Confirmed By:FELICE FERNANDEZ MD
--- NOTE | 2019-04-22 15:22 | EKG ---
Test Reason : Blood Pressure : / mmHG Vent. Rate : 080 BPM Atrial Rate : 080 BPM P-R Int : 136 ms QRS Dur : 088 ms QT Int : 352 ms P-R-T Axes : 067 089 055 degrees QTc Int : 405 ms NORMAL SINUS RHYTHM WITH SINUS ARRHYTHMIA NORMAL ECG WHEN COMPARED WITH ECG OF 13-DEC-2018 01:18, NO SIGNIFICANT CHANGE WAS FOUND Confirmed by FELICE FERNANDEZ MD ([id number]) on 04/22/2019 3:21:49 PM Referred By: Confirmed By:FELICE FERNANDEZ MD
== END 2019-04-21 20:11 | disposition home or self-care (01) ==
LOC: JER 14:21
PROC: 3E0337Z Introduction of Electrolytic and Water Balance Substance into Peripheral Vein, Percutaneous Approach (ICD-10-PCS; principal; 2019-04-21)
DX: R07.89 Other chest pain (principal); J45.909 Unspecified asthma, uncomplicated; D69.3 Immune thrombocytopenic purpura
CPT/HCPCS: 36415; 71046-TC-FY; 80053; 84443; 84484; 84703; 85025; 93005; 93010; 93308; 99284-25

== ENCOUNTER 2019-06-06 12:16 | Emergency (ER) | payer OTHER ==
[2019-06-06 12:31] VITALS: BP 125/85; PULSE 95; TEMP 98.3; BMI 34.3
[2019-06-06] MEDS ORDERED: KETOROLAC TROMETHAMINE 60 MG/2 ML VIAL IM ONE (12:36)
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
[2019-06-06] MEDS ORDERED: KETOROLAC TROMETHAMINE 60 MG/2 ML VIAL ONE (13:14)
== END 2019-06-06 13:27 | disposition home or self-care (01) ==
LOC: JER 12:16
PROC: 3E0233Z Introduction of Anti-inflammatory into Muscle, Percutaneous Approach (ICD-10-PCS; principal; 2019-06-06)
DX: M54.5 Low back pain (principal); J45.909 Unspecified asthma, uncomplicated; Z86.2 Personal history of diseases of the blood and blood-forming organs and certain disorders involving the immune mechanism
CPT/HCPCS: 96372; 99282-25

== ENCOUNTER 2019-07-11 15:55 | Emergency (ER) | payer OTHER ==
[2019-07-11 16:02] VITALS: TEMP 99; BMI 34.1
--- NOTE | 2019-07-11 16:26 | PDOC ---
History of Present Illness - General Chief Complaint: Pain Stated Complaint: ABD PAIN/ NAUSEOUS Time Seen by Provider: 07/11/19 16:24 History Source: Patient Exam Limitations: No Limitations - History of Present Illness Initial Comments: 07/11/19 16:26 Gillian Basilio is a 24F with PMH asthma, vertigo, and ITP presenting with 6 days of nausea and poor PO intake. Reports 6 days of nausea without fever or vomiting. Denies abd pain, urinary sx , dizziness, ALLAN, weakness, chest pain, SOB, cough. Had 2 normal-appearing loose stools yesterday. Decreased PO intake 2/2 nausea, tolerating PO solids and liquids but feels nauseated after eating, no vomiting. Last meals was yesterday , tried eating noodles and felt nauseated, no vomiting. Has history of vertigo and nausea, but says this feels different from that. 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 Denies any alcohol/tobacco/drug use. Has one child born 2017, induced 2/2 HTN. LMP 6 days ago and ended 4 days ago, last sexual activity 6 days ago. Concerned about status. Denies vaginal discharge. Denies history of STDs. Past History - Past Medical History Allergies/Adverse Reactions: Allergies Allergy/AdvReac Type Severity Reaction Status Date / Time Sulfa (Sulfonamide Allergy Verified 07/11/19 16:02 Antibiotics) Home Medications: Ambulatory Orders Albuterol Sulfate Inhaler - [Ventolin Hfa Inhaler -] 1 - 2 inh PO Q4H #1 inhaler 02/14/19 Anemia: Yes (ITP) Asthma: Yes COPD: No - Reproductive History Cervical CA: No Dysfunctional Uterine Bleeding: No Ectopic : No Endometrial CA: No Polycystic Ovaries: No Therapeutic (s) & number: No Tubal Ligation: No - Immunization History Td Vaccination: Yes TDAP Vaccination: Yes Immunization Up to Date: Yes - Psycho Social/Smoking Cessation Hx Smoking History: Never smoked Have you smoked in the past 12 months: No Hx Alcohol Use: No Drug/Substance Use Hx: No Review of Systems - Review of Systems Able to Perform ROS?: Yes Constitutional: No: Chills, Diaphoresis, Fever, Weakness HEENTM: No: Blurred Vision, Recent change in vision, Nose Pain, Nose Congestion , Hearing Loss, Throat Pain, Dental Problems, Difficulty Swallowing Respiratory: No: Cough, Shortness of Breath, Wheezing Cardiac (ROS): No: Chest Pain, Irregular Heart Rate, Lightheadedness, Palpitations, Syncope ABD/GI: Yes: Nausea, Poor Appetite, Poor Fluid Intake. No: Constipated, Diarrhea, Rectal Bleeding, Vomiting, Abdominal cramping : No: Burning, Dysuria, Discharge, Frequency, Flank Pain, Hematuria, Incontinence, Pain Musculoskeletal: No: Back Pain, Joint Pain, Muscle Weakness Integumentary: No: Symptoms Reported Neurological: No: Headache, Numbness, Paresthesia, Weakness, Unsteady Gait, Dizziness Endocrine: No: Symptoms Reported Hematologic/Lymphatic: No: Symptoms Reported All Other Systems: Reviewed and Negative *Physical Exam - Vital Signs Last Vital Signs Temp Pulse Resp BP Pulse Ox 99.0 F 87 18 133/75 99 07/11/19 16:00 07/11/19 16:00 07/11/19 16:00 07/11/19 16:00 07/11/19 16:00 - Physical Exam General Appearance: Yes: Nourished, Appropriately Dressed. No: Apparent Distress HEENT: positive: EOMI, ELVIA, Normal Voice, Symmetrical, Pharynx Normal, Hearing Grossly Normal. negative: Scleral Icterus (R), Scleral Icterus (L), Pharyngeal Erythema, Tonsillar Exudate, Tonsillar Erythema, Lesions Neck: positive: Trachea midline, Normal Thyroid, Supple. negative: Tender, Lymphadenopathy (R), Lymphadenopathy (L) Respiratory/Chest: positive: Lungs Clear, Normal Breath Sounds. negative: Chest Tender, Respiratory Distress, Accessory Muscle Use, Labored Respiration, Crackles, Rales, Rhonchi Cardiovascular: positive: Regular Rhythm, Regular Rate. negative: Murmur Gastrointestinal/Abdominal: positive: Normal Bowel Sounds, Flat, Soft. negative : Tender, Organomegaly, Guarding, Rebound Musculoskeletal: positive: Normal Inspection. negative: CVA Tenderness Extremity: positive: Normal Capillary Refill, Normal Inspection, Normal Range of Motion. negative: Tender Integumentary: positive: Normal Color, Dry, Warm Neurologic: positive: Fully Oriented, Alert, Normal Mood/Affect, Normal Response ED Treatment Course - LABORATORY CBC & Chemistry Diagram: 07/11/19 17:00 07/11/19 17:00 Medical Decision Making - Medical Decision Making 07/11/19 16:26 Gillian Basilio is a 24F with PMH asthma, vertigo, and ITP presenting with 6 days of nausea and poor PO intake. Patient presents with nausea for 6 days without vomiting or abdominal pain or fever. Presentation is consistent with gastroenteritis or other viral illness such as influenza or cold, but has no fever or other abd pain sx. Denies recent alcohol/drug use. Non-toxic appearing at this time. Evaluating via: CMP CBC lipase UA/UC/Upreg Giving 1L NS and Zofran for nausea, will re-evaluate. 07/11/19 18:16 Upreg negative, labs WNL, no clear evidence of UTI. Patient feels better after fluids and Zofran, still a bit nauseated. Relieved that she is not . Will PO challenge and then discharge home. 07/11/19 19:14 Patient evaluated and discharged by Dr. Schroeder. Discharge - Discharge Information Problems reviewed: Yes Clinical Impression/Diagnosis: Nausea, Poor appetite Condition: Stable Disposition: HOME - Follow up/Referral - Patient Discharge Instructions Patient Printed Discharge Instructions: DI for Nausea -- Adult Additional Instructions: Today you were evaluated for nausea for the last week. We did some blood labs and did not see any abnormalities in your labs. We gave you some fluids by IV, as well as medications called Zofran and Pepcid for your nausea, and you felt some improvement. Your test was negative. At home, please keep drinking lots of fluids for your stomach upset, as you may have a stomach virus that should go away on its own. A urine test we checked is pending. We will call you if it is positive for infection. Please see your doctor in the next 3 days for further care. If you experience worsening nausea, vomiting, fever, abdominal pain, chest pain, trouble breathing , pain or blood with urination, or any other new or concerning symptoms, please return to the closest emergency room. - Post Discharge Activity Work/Back to School Note: Back to Work
[2019-07-11] MEDS ORDERED: SODIUM CHLORIDE 0.9% 500 ML INFUS.BAG IV ONE (16:44)
[2019-07-11] MEDS ORDERED: ONDANSETRON 4 MG/2 ML VIAL IVPUSH ONE (16:44)
[2019-07-11] MEDS ORDERED: FAMOTIDINE 20 MG/50 ML IVPB 20 MG/50 ML MG IVPB ONE ×2 (16:45→16:50)
[2019-07-11] MEDS ORDERED: ONDANSETRON 4 MG/2 ML VIAL ONE (16:50)
[2019-07-11 17:09] LABS: BASO % 1.1 % (0-2.0); HEMATOCRIT 37.3 % (32.4-45.2); HEMOGLOBIN 12.1 GM/dL (10.7-15.3); LYMPH % 25.2 % (8-40); MCH 29.1 pg (25.7-33.7); MCHC 32.4 g/dl (32.0-36.0); MEAN CELL VOLUME 90.1 fl (80-96); MEAN PLT VOLUME 11.4 fl (7.5-11.1); MONO % 7.4 % (3.8-10.2); NEUT % 60.3 % (42.8-82.8); PLATELET COUNT 135 K/MM3 (134-434); RBC 4.14 M/mm3 (3.60-5.2); RDW 12.7 % (11.6-15.6); WHITE BLOOD COUNT 10.8 K/mm3 (4.0-10.0)
--- NOTE | 2019-07-11 17:24 | PDOC ---
Attending Attestation - Resident Resident Name: Efrain Garcia - ED Attending Attestation I have performed the following: I have examined & evaluated the patient, The case was reviewed & discussed with the resident, I agree w/resident's findings & plan, Exceptions are as noted - HPI HPI: 07/11/19 17:22 24yo F hx asthma, ITP, vertigo presents to the ED with 1 week of nausea. Denies vomiting, fever or abd pain. Has not been eating very much. Had NB diarrhea x2 yesterday - described as brown loose stools. Denies sick contacts. Did not eat new foods. No recent travel. No fevers, chills, dizziness, weakness. 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 Pt spoke with a friend who advised her to come to the ED to see if she was . DEnies vaginal DC. Denies dysuria, frequency, urgency, hematuria. Denies CP/SOB, headache, dizziness, numbness, back pain. - Physicial Exam PE: 07/11/19 18:59 GENERAL: Awake, alert, and fully oriented, in no acute distress EYES: PERRLA, EOMI, sclera anicteric, conjunctiva clear ENT: Oropharynx clear without exudates. Moist mucosa LUNGS: Breath sounds equal, clear to auscultation bilaterally. No wheezes, and no crackles HEART: Regular rate and rhythm, normal S1 and S2, no murmurs, rubs or gallops ABDOMEN: Soft, nontender, normoactive bowel sounds. No guarding, no rebound. No masses. No CVAT. EXTREMITIES: Normal range of motion, no edema. No cords, erythema, or tenderness NEUROLOGICAL: Normal speech, cranial nerves intact, equal strength and sensation b/l SKIN: Warm, Dry, normal turgor, no rashes or lesions noted. - Medical Decision Making 07/11/19 18:59 24yo F hx ITP, vertigo, asthma presents to the ED with 1 week of nausea, and diarrhea 2 days ago. Pt requesting test Vitals wnl Exam normal, no abd ttp Labs wnl UPT neg Tolerating PO UA with 10-15 whites but also epithelial cells. Pt has no urinary sxs, thus will hold off on abx unless pending UCx is positive Serial abd exams wnl Pt feels well, clinically stable for DC home I discussed the physical exam findings, ancillary test results and final diagnoses with the patient. I answered all of the patient's questions. The patient was satisfied with the care received and felt comfortable with the discharge plan and treatment plan. The patient will call their primary care physician within 24 hours to arrange follow-up and will return to the Emergency Department with any new, persistent or worsening symptoms.
[2019-07-11 17:31] LABS: ALBUMIN 3.3 g/dl (3.4-5.0); BILIRUBIN,TOTAL 0.2 mg/dL (0.2-1); BLOOD UREA NITROGEN 10.6 mg/dL (7-18); CALCIUM 8.7 mg/dL (8.5-10.1); CREATININE 1.1 mg/dL (0.55-1.3); POTASSIUM 4.1 mmol/L (3.5-5.1)
[2019-07-11 17:49] LABS: URINE APPEARANCE Clear; URINE BILIRUBIN Negative (NEGATIVE); URINE COLOR Yellow; URINE GLUCOSE (UA) Negative (NEGATIVE); URINE KETONE Negative (NEGATIVE); URINE LEUK ESTERASE 2+ (NEGATIVE); URINE NITRITE Negative (NEGATIVE); URINE PROTEIN Negative (NEGATIVE); URINE UROBILINOGEN 0.2 mg/dL (0.2-1.0)
[2019-07-11 18:45] LABS: HYALINE CASTS 0-5 /lpf (0-8); URINE BACTERIA MODERATE /hpf (NEGATIVE)
[2019-07-11 19:51] VITALS: BP 127/81; PULSE 84
== END 2019-07-11 19:45 | disposition home or self-care (01) ==
LOC: JER 15:55
PROC: 3E033GC Introduction of Other Therapeutic Substance into Peripheral Vein, Percutaneous Approach (ICD-10-PCS; principal; 2019-07-11)
PROC: 3E033GC Introduction of Other Therapeutic Substance into Peripheral Vein, Percutaneous Approach (ICD-10-PCS; 2019-07-11)
DX: R11.0 Nausea (principal); R63.0 Anorexia; R42 Dizziness and giddiness; D69.3 Immune thrombocytopenic purpura; J45.909 Unspecified asthma, uncomplicated; Z88.2 Allergy status to sulfonamides
CPT/HCPCS: 36415; 80053; 81003; 83690; 84703; 85025; 87086; 96365; 96375; 99285-25

== ENCOUNTER 2019-07-18 14:31 | Emergency (ER) | payer OTHER ==
[2019-07-18 14:58] VITALS: BP 127/65; PULSE 73; TEMP 98.5; BMI 34.1
[2019-07-18] MEDS ORDERED: predniSONE 20 MG TABLET (UD) ONE (15:06)
[2019-07-18] MEDS ORDERED: ALBUTEROL SO4 2.5/IPRATROPIUM 0.5 INH SOL 3 ML VIAL.NEB. NEB ONE (15:06)
[2019-07-18] MEDS ORDERED: IPRATROPIUM BR 0.02% 0.5 MG/2.5 ML VIAL.NEB. NEB ONE (15:08)
--- NOTE | 2019-07-18 15:19 | PDOC ---
History of Present Illness - General Chief Complaint: Respiratory Stated Complaint: ASTHMA Time Seen by Provider: 07/18/19 15:01 History Source: Patient - History of Present Illness Timing/Duration: reports: this afternoon Severity: reports: mild Past History - Past Medical History Allergies/Adverse Reactions: Allergies Allergy/AdvReac Type Severity Reaction Status Date / Time Sulfa (Sulfonamide Allergy Verified 07/18/19 14:58 Antibiotics) Home Medications: Ambulatory Orders Albuterol Sulfate Inhaler - [Ventolin Hfa Inhaler -] 1 - 2 inh PO Q4H #1 inhaler 02/14/19 Albuterol Sulfate Inhaler - [Ventolin HFA Inhaler -] 1 - 2 inh PO Q4H #1 inhaler 07/18/19 Prednisone [Deltasone] 40 mg PO DAILY #8 tablet 07/18/19 Anemia: Yes (ITP) Asthma: Yes COPD: No - Reproductive History (#): 1 Para: 1 Cervical CA: No Dysfunctional Uterine Bleeding: No Ectopic : No Endometrial CA: No Polycystic Ovaries: No Therapeutic (s) & number: No Tubal Ligation: No - Immunization History Td Vaccination: Yes TDAP Vaccination: Yes Immunization Up to Date: Yes - Psycho Social/Smoking Cessation Hx Smoking History: Never smoked Have you smoked in the past 12 months: No Hx Alcohol Use: No Drug/Substance Use Hx: No Review of Systems - Review of Systems Constitutional: No: Chills, Fever Respiratory: Yes: Shortness of Breath, Wheezing. No: Cough Cardiac (ROS): Yes: Chest Tightness ABD/GI: Yes: Nausea Neurological: Yes: Dizziness *Physical Exam - Vital Signs Last Vital Signs Temp Pulse Resp BP Pulse Ox 98.5 F 73 18 127/65 99 07/18/19 14:56 07/18/19 14:56 07/18/19 14:56 07/18/19 14:56 07/18/19 14:56 - Physical Exam General Appearance: Yes: Appropriately Dressed. No: Apparent Distress HEENT: positive: Normal Voice Neck: positive: Supple Respiratory/Chest: positive: Lungs Clear, Normal Breath Sounds. negative: Respiratory Distress, Wheezing Cardiovascular: positive: Regular Rate, S1, S2 Gastrointestinal/Abdominal: positive: Soft. negative: Tender Integumentary: positive: Dry, Warm Neurologic: positive: Fully Oriented, Alert, Normal Mood/Affect Medical Decision Making - Medical Decision Making 07/18/19 15:11 24-year-old female history of asthma no recent admissions and no history of intubations here with shortness of breath, chest tightness and wheezing that started after walking to the store today. States she does not have any asthma pump at home as had not had a flare in "a long time". Denies any cough or fever. see exam Mild asthma flare Stable w/ clear lungs -nebs -pred -reassess Pt also c/o intermittent dizziness, fatigue and nausea x 2 weeks Menses on 07/05 was not normal per pt, last normal menses was 06/04/19 Not on control -upreg pending 07/18/19 16:05 Upreg neg. UA w/ 2+ LE, wbc 49 and brisa of> 500. Will hold off on treatment at this time as patient not having any dysuria or flank pain. Will send ucx. Patient improved with asthma treatment. Able to ambulate without shortness of breath. Lungs remain clear on reassessment. Will dc with prednisone burst and encourage PMD follow-up Discharge - Discharge Information Problems reviewed: Yes Clinical Impression/Diagnosis: Asthma flare Qualifiers: Asthma severity: mild Asthma persistence: unspecified Qualified Code(s): J45.901 - Unspecified asthma with (acute) exacerbation Fatigue Qualifiers: Fatigue type: unspecified Qualified Code(s): R53.83 - Other fatigue Condition: Improved Disposition: HOME - Additional Discharge Information Prescriptions: Albuterol Sulfate Inhaler - [Ventolin HFA Inhaler -] 1 - 2 inh PO Q4H #1 inhaler Prednisone [Deltasone] 40 mg PO DAILY #8 tablet - Follow up/Referral - Patient Discharge Instructions Patient Printed Discharge Instructions: Asthma -- Adult Additional Instructions: Take medications as directed and follow-up with your PMD for further evaluation - Post Discharge Activity
[2019-07-18 15:51] LABS: EPI CELLS 8.1 /HPF (0-5/HPF); HYALINE CASTS 16 /lpf (0-8); PH,URINE 5.5 (5.0-8.0); URINE APPEARANCE CLOUDY; URINE BACTERIA 536.9 /hpf (NEGATIVE); URINE BILIRUBIN NEGATIVE (NEGATIVE); URINE COLOR YELLOW; URINE GLUCOSE (UA) NEGATIVE (NEGATIVE); URINE KETONE NEGATIVE (NEGATIVE); URINE LEUK ESTERASE 2+ (NEGATIVE); URINE NITRITE NEGATIVE (NEGATIVE); URINE PROTEIN NEGATIVE (NEGATIVE); URINE UROBILINOGEN 0.2 mg/dL (0.2-1.0); URINE WBC 49 /hpf (0-5)
== END 2019-07-18 16:30 | disposition home or self-care (01) ==
LOC: JERFT 14:31 → JER 14:31 → JERFT 16:30
DX: J45.901 Unspecified asthma with (acute) exacerbation (principal); R53.83 Other fatigue; R11.0 Nausea; D69.3 Immune thrombocytopenic purpura; Z88.2 Allergy status to sulfonamides
CPT/HCPCS: 81003; 84703; 87086; 99281-25

== ENCOUNTER 2019-09-11 21:07 | Emergency (ER) | payer SELFPAY ==
[2019-09-11 21:18] VITALS: TEMP 97.6; BMI 34.3
[2019-09-11] MEDS ORDERED: SODIUM CHLORIDE 0.9% 500 ML INFUS.BAG IV ONE (21:44)
[2019-09-11] MEDS ORDERED: MECLIZINE HCL 25 MG TABLET (FP) PO ONE (21:44)
[2019-09-11] MEDS ORDERED: METOCLOPRAMIDE HCL INJECTION 10 MG/2 ML VIAL IVPUSH ONE (21:46)
[2019-09-11] MEDS ORDERED: ACETAMINOPHEN 325 MG TABLET (FP) PO ONE (21:46)
--- NOTE | 2019-09-11 22:02 | PDOC ---
History of Present Illness - General Chief Complaint: Syncope/Near Syncope Stated Complaint: DIZZINESS Time Seen by Provider: 09/11/19 21:19 - History of Present Illness Initial Comments: Gillian Basilio is a 24yo woman with a PMH of asthma, vertigo, ITP (platelet minimum 135 in past year) who presents with dizziness, nausea/vomiting and headache. She states that she was feeling well earlier in the day, took a shower this evening and became dizzy when she got out of the shower. She says that the dizziness feels like the room is spinning, and it is similar to when she was diagnosed with vertigo in the past. The dizziness occurs when she turns her head to the right. Ms Basilio walked over to a friend's house and started to feel nauseated on the way there; she started vomiting shortly afterwards. She also reports onset of a headache along with the other symptoms. She denies rapid onset, neck pain/ stiffness, fever, vision changes, numbness, weakness, or any neurological symptoms. She does endorse photosensitivity. The headache is bilateral and is similar to headaches she has had in the past. She additionally denies any recent bruising or Currently she reports continued nausea, headache, photosensitivity, and room- spinning dizziness that occurs when turning her head to the right. Past History - Past Medical History Allergies/Adverse Reactions: Allergies Allergy/AdvReac Type Severity Reaction Status Date / Time Sulfa (Sulfonamide Allergy Verified 09/11/19 21:17 Antibiotics) Home Medications: Ambulatory Orders Albuterol Sulfate Inhaler - [Ventolin Hfa Inhaler -] 1 - 2 inh PO Q4H #1 inhaler 02/14/19 Albuterol Sulfate Inhaler - [Ventolin HFA Inhaler -] 1 - 2 inh PO Q4H #1 inhaler 07/18/19 predniSONE [Deltasone] 40 mg PO DAILY #8 tablet 07/18/19 Meclizine HCl [Antivert -] 25 mg PO QID PRN #28 tablet 09/11/19 Ondansetron [Zofran *Odt*] 4 mg SL TID PRN #21 od.tablet 09/11/19 Anemia: Yes (ITP) Asthma: Yes COPD: No - Reproductive History (#): 1 Para: 1 Cervical CA: No Dysfunctional Uterine Bleeding: No Ectopic : No Endometrial CA: No Polycystic Ovaries: No Therapeutic (s) & number: No Tubal Ligation: No - Immunization History Td Vaccination: Yes TDAP Vaccination: Yes Immunization Up to Date: Yes - Psycho Social/Smoking Cessation Hx Smoking History: Never smoked Have you smoked in the past 12 months: No Information on smoking cessation initiated: No Hx Alcohol Use: No Drug/Substance Use Hx: No Review of Systems - Review of Systems Comments:: General: No fevers, no chills, no weight or appetite change, no malaise HEENT: No changes in vision, no changes in hearing, no congestion, no sore throat CV: No chest pain, no palpitations, no LE edema Pulm: No SOB, no cough, no wheezing GI: + nausea, no vomiting, no change in bowel habits, no melena : No frequency, no urgency, no dysuria Musc: No back pain, no joint swelling, no recent injury Skin: No rash, no lesions, no erythema Endo: No excessive thirst, no heat/cold intolerance Heme: No unusual bruising or bleeding, no swollen glands Neuro: No syncope, no numbness/tingling, no focal weakness. +Vertigo Vasc: No claudication Psych: No recent change in mood, no SI or HI *Physical Exam - Vital Signs Last Vital Signs Temp Pulse Resp BP Pulse Ox 97.6 F 73 18 127/95 95 09/11/19 21:17 09/11/19 21:17 09/11/19 21:17 09/11/19 21:17 09/11/19 21:17 - Physical Exam General: Uncomfortable but in no acute distress HEENT: Atraumatic, PERRL, EOMI, MMM, +squinting w/ lights, TM clear b/l, voice normal, normal neck ROM, posterior neck tenderness Cards: RRR, no murmur appreciated Pulm: Comfortable on room air, clear to auscultation bilaterally Abd: Soft, nontender, nondistended Ext: Atraumatic. No LE edema. ROM intact. WWP Skin: Normal color, no rashes or lesions Neuro: A&Ox3, CN grossly intact, normal speech, motor/sensory grossly intact and symmetric, no focal deficits Psych: Mood appropriate to situation ED Treatment Course - LABORATORY CBC & Chemistry Diagram: 09/11/19 22:14 09/11/19 22:14 Medical Decision Making - Medical Decision Making 09/11/19 21:47 Gillian Basilio is a 24yo woman with a PMH of asthma, vertigo, ITP (platelet minimum 135 in past year) who presents with vertigo, nausea/vomiting and headache w/ photophobia that started this evening. She experiences vertigo when turning her head to the right. - Most likely vertigo, possible migraine-type headache given photophobia - No red flag symptoms including sudden onset, fever, neuro symptoms - Given h/o ITP, will check CBC, CMP though does not appear to have any s/s concerning for thrombocytopenia or bleed currently - IVF, acetaminophen, reglan, meclzine for symptoms 09/11/19 23:44 - Labs unremarkable - Still feeling dizzy, ALLAN. Meds not yet completed, only received ~300cc saline - UA, Urine preg ordered - Reassess following IVF - EKG completed. NSR, HR 62, normal axis, normal intervals, no ST changes. - To be signed out to Dr Li for the remainder of her ED care. Discussed with Dr Ajit Simpson PGY2 Discharge - Discharge Information Problems reviewed: Yes Clinical Impression/Diagnosis: Vertigo, Nausea Condition: Stable Disposition: HOME - Admission No - Additional Discharge Information Prescriptions: Meclizine HCl [Antivert -] 25 mg PO QID PRN #28 tablet PRN Reason: Vertigo Ondansetron [Zofran *Odt*] 4 mg SL TID PRN #21 od.tablet PRN Reason: Nausea - Follow up/Referral Referrals: Migel Palacios MD [Staff Physician] - - Patient Discharge Instructions Patient Printed Discharge Instructions: DI for Benign Paroxysmal Positional Vertigo Additional Instructions: Discharge Instructions: You were seen in the emergency department for vertigo, nausea, and headache. You had blood tests that did not show any concerning findings. Your symptoms improved with medications. Home Care and Follow Up: - Make sure you are staying well hydrated. Drink extra water - You may take acetaminophen (Tylenol) 650-1000mg or ibuprofen (Advil, Motrin) 600mg every 6-8 hours as needed for headache. - You have been prescribed a medication called meclizine for your vertigo/ dizziness. You may take this every 8 hours as needed. - Follow up with your regular doctor within the next week. - It is recommended that you see an ENT specialist for evaluation of your vertigo. You have been given contact information for Dr Palacios, or you may ask your regular doctor for a referral. Try to be seen within the next week for evaluation. - Seek immediate care for worsening of your symptoms, persistent nausea that prevents you from eating, any neurological symptoms (one-sided weakness, numbness, difficulty speaking, confusion) or any other medical emergency. - Post Discharge Activity
[2019-09-11 22:22] LABS: BASO % 0.9 % (0-2.0); EOS % 3.6 % (0-4.5); HEMATOCRIT 37.3 % (32.4-45.2); HEMOGLOBIN 12.1 GM/dL (10.7-15.3); LYMPH % 15.2 % (8-40); MCH 29.4 pg (25.7-33.7); MCHC 32.6 g/dl (32.0-36.0); MEAN CELL VOLUME 90.3 fl (80-96); MEAN PLT VOLUME 10.5 fl (7.5-11.1); MONO % 7.3 % (3.8-10.2); PLATELET COUNT 205 K/MM3 (134-434); RBC 4.13 M/mm3 (3.60-5.2); RDW 13.1 % (11.6-15.6); WHITE BLOOD COUNT 12.2 K/mm3 (4.0-10.0)
[2019-09-11] MEDS ORDERED: METOCLOPRAMIDE HCL INJECTION 10 MG/2 ML VIAL ONE (22:31)
[2019-09-11] MEDS ORDERED: ACETAMINOPHEN 325 MG TABLET (FP) ONE (22:31)
[2019-09-11] MEDS ORDERED: MECLIZINE HCL 25 MG TABLET (FP) ONE (22:31)
--- NOTE | 2019-09-11 22:35 | PDOC ---
Attending Attestation - Resident Resident Name: Pushpa Simpson - ED Attending Attestation I have performed the following: I have examined & evaluated the patient, The case was reviewed & discussed with the resident, I agree w/resident's findings & plan - HPI HPI: 09/11/19 23:37 Pt was dizzy when she got out of the shower this evening. She didn't take an extended shower, and she states that she felt chills. She has no PMHX. SHe states that she has dizziness when she looks to the right side. 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 09/11/19 23:57 - Physicial Exam PE: 09/11/19 23:57 Awake and alert. Normal exam Pt has no chest pain. S1S2 RRR Lungs clear Abd soft NT ND No flank pain. No pitting edema. - Medical Decision Making 09/11/19 23:59 Pt has normal labs and normal EKG and normal exam. She has some dizziness when she is asked to look to the right. HEENT normal. 09/12/19 00:00 Pt will be hydrated and treated with meds; she is feeling better. 09/12/19 21:29
[2019-09-11 23:07] LABS: ALBUMIN 3.4 g/dl (3.4-5.0); BILIRUBIN,TOTAL 0.5 mg/dL (0.2-1); BLOOD UREA NITROGEN 11.1 mg/dL (7-18); CALCIUM 8.8 mg/dL (8.5-10.1); POTASSIUM 4.3 mmol/L (3.5-5.1)
--- NOTE | 2019-09-12 00:05 | PDOC ---
*Physical Exam - Vital Signs Last Vital Signs Temp Pulse Resp BP Pulse Ox 97.6 F 73 18 127/95 95 09/11/19 21:17 09/11/19 21:17 09/11/19 21:17 09/11/19 21:17 09/11/19 21:17 ED Treatment Course - LABORATORY CBC & Chemistry Diagram: 09/11/19 22:14 09/11/19 22:14 - ADDITIONAL ORDERS Additional order review: Laboratory Results 09/11/19 22:14 Sodium 141 Potassium 4.3 Chloride 107 Carbon Dioxide 26 Anion Gap 8 BUN 11.1 Creatinine 1.0 Est GFR (CKD-EPI)AfAm 91.96 Est GFR (CKD-EPI)NonAf 79.35 Random Glucose 93 Calcium 8.8 Total Bilirubin 0.5 AST 19 ALT 20 Alkaline Phosphatase 117 Total Protein 7.0 Albumin 3.4 09/11/19 22:14 RBC 4.13 MCV 90.3 MCHC 32.6 RDW 13.1 MPV 10.5 Neutrophils % 73.0 D Lymphocytes % 15.2 D Monocytes % 7.3 Eosinophils % 3.6 Basophils % 0.9 - Medications Given in the ED: ED Medications Discontinued Medications Generic Name Dose Route Start Last Admin Trade Name Freq PRN Reason Stop Dose Admin Acetaminophen 975 mg 09/11/19 21:46 09/11/19 22:38 Tylenol - PO 09/11/19 21:47 975 mg ONCE ONE Administration Diphenhydramine HCl 12.5 mg 09/11/19 21:46 09/11/19 22:38 Benadryl Injection - IVPUSH 09/11/19 21:47 12.5 mg ONCE ONE Administration Meclizine HCl 50 mg 09/11/19 21:44 09/11/19 22:38 Antivert - PO 09/11/19 21:45 50 mg ONCE ONE Administration Metoclopramide HCl 10 mg 09/11/19 21:46 09/11/19 22:38 Reglan Injection - IVPUSH 09/11/19 21:47 10 mg ONCE ONE Administration Sodium Chloride 1,000 ml 09/11/19 21:44 09/11/19 22:38 Normal Saline - IV 09/11/19 21:45 1,000 ml ONCE ONE Administration Medical Decision Making - Medical Decision Making Patient was reassessed and found to have resolution of symptoms. She feels well , able to ambulate on her own volition, and wishes to be discharged. Strict return precautions given. Dispo: Discharge Discharge - Discharge Information Problems reviewed: Yes Clinical Impression/Diagnosis: Vertigo, Nausea Condition: Stable Disposition: HOME - Additional Discharge Information Prescriptions: Meclizine HCl [Antivert -] 25 mg PO QID PRN #28 tablet PRN Reason: Vertigo Ondansetron [Zofran *Odt*] 4 mg SL TID PRN #21 od.tablet PRN Reason: Nausea - Follow up/Referral Referrals: Migel Palacios MD [Staff Physician] - - Patient Discharge Instructions Patient Printed Discharge Instructions: DI for Benign Paroxysmal Positional Vertigo Additional Instructions: Discharge Instructions: You were seen in the emergency department for vertigo, nausea, and headache. You had blood tests that did not show any concerning findings. Your symptoms improved with medications. Home Care and Follow Up: - Make sure you are staying well hydrated. Drink extra water - You may take acetaminophen (Tylenol) 650-1000mg or ibuprofen (Advil, Motrin) 600mg every 6-8 hours as needed for headache. - You have been prescribed a medication called meclizine for your vertigo/ dizziness. You may take this every 8 hours as needed. - Follow up with your regular doctor within the next week. - It is recommended that you see an ENT specialist for evaluation of your vertigo. You have been given contact information for Dr Palacios, or you may ask your regular doctor for a referral. Try to be seen within the next week for evaluation. - Seek immediate care for worsening of your symptoms, persistent nausea that prevents you from eating, any neurological symptoms (one-sided weakness, numbness, difficulty speaking, confusion) or any other medical emergency. - Post Discharge Activity
[2019-09-12 01:02] LABS: EPI CELLS 8.2 /HPF (0-5/HPF); HYALINE CASTS 12 /lpf (0-8); URINE APPEARANCE CLEAR; URINE BACTERIA 124.7 /hpf (NEGATIVE); URINE BILIRUBIN NEGATIVE (NEGATIVE); URINE COLOR YELLOW; URINE GLUCOSE (UA) NEGATIVE (NEGATIVE); URINE KETONE NEGATIVE (NEGATIVE); URINE LEUK ESTERASE 1+ (NEGATIVE); URINE NITRITE NEGATIVE (NEGATIVE); URINE PROTEIN NEGATIVE (NEGATIVE); URINE RBC 15 /hpf (0-4); URINE WBC 16 /hpf (0-5)
[2019-09-12 01:17] VITALS: BP 125/60; PULSE 67
--- NOTE | 2019-09-13 01:01 | EKG ---
Test Reason : Blood Pressure : / mmHG Vent. Rate : 062 BPM Atrial Rate : 062 BPM P-R Int : 138 ms QRS Dur : 084 ms QT Int : 398 ms P-R-T Axes : 066 088 065 degrees QTc Int : 403 ms NORMAL SINUS RHYTHM NORMAL ECG WHEN COMPARED WITH ECG OF 21-APR-2019 19:10, NO SIGNIFICANT CHANGE WAS FOUND Confirmed by RAZ STRINGER MD ([id number]) on 09/13/2019 1:01:41 AM Referred By: Confirmed By:RAZ STRINGER MD
== END 2019-09-12 01:17 | disposition home or self-care (01) ==
LOC: JER 21:07
PROC: 3E033GC Introduction of Other Therapeutic Substance into Peripheral Vein, Percutaneous Approach (ICD-10-PCS; principal; 2019-09-11)
DX: R42 Dizziness and giddiness (principal); R11.0 Nausea; J45.909 Unspecified asthma, uncomplicated; D69.3 Immune thrombocytopenic purpura
CPT/HCPCS: 36415; 80053; 81003; 84703; 85025; 93005; 93010; 99283-25

== ENCOUNTER 2019-10-25 00:23 | Emergency (ER) | payer SELFPAY ==
[2019-10-25 00:36] VITALS: TEMP 98.7; BMI 37.0
--- NOTE | 2019-10-25 02:34 | PDOC ---
Attending Attestation - Resident Resident Name: Daphne Medel - ED Attending Attestation I have performed the following: I have examined & evaluated the patient, The case was reviewed & discussed with the resident, I agree w/resident's findings & plan - HPI HPI: 10/25/19 02:34 Pt comes with asthma exacerbation - Physicial Exam PE: 10/25/19 03:28 Agree with resident exam. Pt has tachycardia because she has been using her albuterol nebs Pt has no fever; however 99+F at home and she is worried that she may have a pneumonia - Medical Decision Making 10/25/19 02:34 Pt is tachycardic; pt has glc of 117 only 10/25/19 03:29 CXR pending 10/29/19 23:21 Pt with h/o asthma p/w respiratory distress like their prior asthma exacerbation. No reported h/o asthma resulting in intubation, PTX, seizure, LOC, hypercapnia, acidosis, etc. Initial Vital Signs Temp Pulse Resp BP Pulse Ox 98.7 F 115 H 18 142/82 100 10/25/19 00:32 10/25/19 00:32 10/25/19 00:32 10/25/19 00:32 10/25/19 00:32 DDX IBNLT: asthma exacerbation, COPD, bronchitis, viral URI, influenza, PNA, PTX , CHF, ACS, pericarditis W/U ordered: CXR TX ordered: DuoNebs Prednisone DISCHARGE The Pt has gotten significant relief of symptoms while in the ED. Workup is not concerning for emergency-level pathology at this time. Pt states they have their normal asthma medications at home including nebs and MDI. Short course prednisone 40 mg sent to pharmacy. Stable for d/c
--- NOTE | 2019-10-25 03:14 | PDOC ---
History of Present Illness - General Chief Complaint: Respiratory Stated Complaint: PNEUMONIA SYMPTOMS Time Seen by Provider: 10/25/19 02:28 History Source: Patient Exam Limitations: No Limitations - History of Present Illness Initial Comments: 10/25/19 03:08 24 YOF with h/o asthma (takes Ventolin about 3x per week in winter, triggered by cold weather, never intubated or admitted to ICU, last was on steroids about 2-3 months ago) and ITP (not on medications) who p/w SOB similar to her prior asthma exacerbations, in the setting of recent flu-like symptoms (head-to-toe body aches, malaise) and recent contact with coworkers who are sick with influenza. She describes chest discomfort as a heavy sensation in her chest which worsens with deep breathing. She has tried NyQuil and DayQuil. Denies f/c/ vomiting/diarrhea/constipation, back pain, abdominal pain, rash, dizziness, or any other new symptoms. Past History - Past Medical History Allergies/Adverse Reactions: Allergies Allergy/AdvReac Type Severity Reaction Status Date / Time Sulfa (Sulfonamide Allergy Verified 10/25/19 00:32 Antibiotics) Home Medications: Ambulatory Orders Albuterol Sulfate Inhaler - [Ventolin Hfa Inhaler -] 1 - 2 inh PO Q4H #1 inhaler 02/14/19 Albuterol Sulfate Inhaler - [Ventolin HFA Inhaler -] 1 - 2 inh PO Q4H #1 inhaler 07/18/19 predniSONE [Deltasone] 40 mg PO DAILY #8 tablet 07/18/19 Meclizine HCl [Antivert -] 25 mg PO QID PRN #28 tablet 09/11/19 Ondansetron [Zofran *Odt*] 4 mg SL TID PRN #21 od.tablet 09/11/19 predniSONE [Deltasone -] 40 mg PO DAILY #6 tablet 10/25/19 Anemia: Yes (ITP) Asthma: Yes COPD: No - Reproductive History (#): 1 Para: 1 Cervical CA: No Dysfunctional Uterine Bleeding: No Ectopic : No Endometrial CA: No Polycystic Ovaries: No Therapeutic (s) & number: No Tubal Ligation: No - Immunization History Td Vaccination: Yes TDAP Vaccination: Yes Immunization Up to Date: Yes - Psycho Social/Smoking Cessation Hx Smoking History: Never smoked Have you smoked in the past 12 months: No Hx Alcohol Use: No Drug/Substance Use Hx: No Review of Systems - Review of Systems Able to Perform ROS?: Yes Comments:: 10/25/19 03:32 GEN: no fever, chills, or generalized weakness HEENT: no ear pain, congestion, sore throat, vision change, or eye pain CV: chest tightness, no palpitations, lightheadedness, syncope, or edema RESP: SOB, wheezing, no cough GI: no abdominal pain, vomiting, diarrhea, constipation, or rectal bleed : no dysuria, hematuria, or discharge MSK: no muscle weakness or pain, no joint swelling or pain NEURO: no headache, vertigo, numbness, tingling, or focal weakness PSYCH: no SI, HI, or behavior change SKIN: no jaundice, rash, lesions, or unexplained bruises ROS otherwise negative except as noted in HPI *Physical Exam - Vital Signs Last Vital Signs Temp Pulse Resp BP Pulse Ox 98.7 F 115 H 18 142/82 100 10/25/19 00:32 10/25/19 00:32 10/25/19 00:32 10/25/19 00:32 10/25/19 00:32 - Physical Exam 10/25/19 03:32 GENERAL: well-appearing, A/Ox4, no distress, answers questions appropriately, obese HEENT: PERRLA, EOMI, moist mucous membranes NECK/BACK: no midline ttp, no spinal stepoff or deformity, no hematoma, full ROM , neck supple CARDIOVASCULAR: regular rate/rhythm, no MGR, strong peripheral pulses, capillary refill <2 seconds, extremities wwp, no edema LUNGS/RESPIRATORY: no respiratory distress, mildly decreased breath sounds diffusely, bilateral expiratory wheezes and rhonchi GI/ABDOMEN: symmetric [id number], normoactive BS, soft, no ttp, no midline pulsatile masses : no CVA tenderness EXTREMITIES: no muscle atrophy, no acute deformity SKIN: warm and dry, no pallor, no jaundice, no rash, no bruising, no skin breakdown, no cuts, no lesions NEUROLOGICAL: GCS 15, CN II-XII grossly intact, 5/5 strength proximally and distally, no facial droop ED Treatment Course - ADDITIONAL ORDERS Additional order review: Laboratory Results 10/25/19 01:00 POC Glucometer 117 10/25/19 01:00 POC Glucometer 117 Medical Decision Making - Medical Decision Making 10/25/19 04:00 Pt with h/o asthma p/w respiratory distress like their prior asthma exacerbation. No reported h/o asthma resulting in intubation, PTX, seizure, LOC, hypercapnia, acidosis, etc. Initial Vital Signs Temp Pulse Resp BP Pulse Ox 98.7 F 115 H 18 142/82 100 10/25/19 00:32 10/25/19 00:32 10/25/19 00:32 10/25/19 00:32 10/25/19 00:32 Exam: As noted in Physical Exam section. DDX IBNLT: asthma exacerbation, COPD, bronchitis, viral URI, influenza, PNA, PTX , CHF, ACS, pericarditis W/U ordered: CXR TX ordered: DuoNebs Prednisone EKG: Reviewed; results as noted in ECG Review section. DISCHARGE The Pt has gotten significant relief of symptoms while in the ED. Workup is not concerning for emergency-level pathology at this time. Pt states they have their normal asthma medications at home including nebs and MDI. Short course prednisone 40 mg sent to pharmacy. The Pt is appropriate for discharge with close outpatient follow up. The Pt is comfortable with this plan and will follow up with PCP in 1-3 days. Specific return precautions are discussed and they will come back to the ER if necessary. Discharge - Discharge Information Problems reviewed: Yes Clinical Impression/Diagnosis: Asthma exacerbation Qualifiers: Asthma severity: unspecified severity Asthma persistence: unspecified Qualified Code(s): J45.901 - Unspecified asthma with (acute) exacerbation Condition: Stable Disposition: HOME - Admission No - Additional Discharge Information Prescriptions: predniSONE [Deltasone -] 40 mg PO DAILY #6 tablet - Follow up/Referral Referrals: Larisa Hernandez MD [Primary Care Provider] - - Patient Discharge Instructions Additional Instructions: You were seen in the ER for asthma exacerbation. We gave you steroids and breathing treatments which resolved your symptoms while you were here in the department. We did a chest x-ray which did not show any concerning findings. After our assessment, we do not believe you are having a medical emergency at this time, and we believe you are safe to go home. We are sending a prescription for prednisone to your pharmacy. Please take the whole course as prescribed, and follow up with your primary care provider(s) in the next 1-3 days. Call their clinic [facility], tell them you were seen in the ER for asthma, and tell them you need an appointment. Please come back to the ER at any time (24 hours a day) for any new or worsening symptoms, like worsened wheezing/ shortness of breath that is not relieved with your home medications, new severe chest pain, loss of consciousness, or seizure. If you are having severe or life threatening symptoms, or symptoms that make it unsafe to drive or have someone drive you, please call 911. - Post Discharge Activity Work/Back to School Note: Back to Work
[2019-10-25] MEDS ORDERED: ALBUTEROL SO4 2.5/IPRATROPIUM 0.5 INH SOL 3 ML VIAL.NEB. NEB ONE ×2 (03:25→03:41)
[2019-10-25] MEDS ORDERED: predniSONE 20 MG TABLET (UD) PO ONE (03:25)
[2019-10-25] MEDS ORDERED: predniSONE 20 MG TABLET (UD) ONE (03:40)
[2019-10-25 06:07] VITALS: BP 130/72; PULSE 92
== END 2019-10-25 05:11 | disposition home or self-care (01) ==
LOC: JER 00:23
PROC: 3E0F7GC Introduction of Other Therapeutic Substance into Respiratory Tract, Via Natural or Artificial Opening (ICD-10-PCS; principal; 2019-10-25)
DX: J45.901 Unspecified asthma with (acute) exacerbation (principal); D69.3 Immune thrombocytopenic purpura; Z88.2 Allergy status to sulfonamides
CPT/HCPCS: 82962; 99281-25

== ENCOUNTER 2019-12-12 14:29 | Emergency (ER) | payer BC ==
[2019-12-12 14:47] VITALS: BP 123/73; PULSE 82; TEMP 98.7; BMI 37.2
[2019-12-12 15:14] LABS: EPI CELLS 1.7 /HPF (0-5/HPF); HYALINE CASTS 1 /lpf (0-8); URINE APPEARANCE CLOUDY; URINE BACTERIA 36.5 /hpf (NEGATIVE); URINE BILIRUBIN NEGATIVE (NEGATIVE); URINE COLOR YELLOW; URINE GLUCOSE (UA) NEGATIVE (NEGATIVE); URINE KETONE NEGATIVE (NEGATIVE); URINE LEUK ESTERASE 2+ (NEGATIVE); URINE NITRITE NEGATIVE (NEGATIVE); URINE PROTEIN TRACE (NEGATIVE); URINE WBC 235 /hpf (0-5)
--- NOTE | 2019-12-12 15:14 | PDOC ---
History of Present Illness - General Chief Complaint: Urinary Problem Stated Complaint: URINARY PROBLEM Time Seen by Provider: 12/12/19 14:48 History Source: Patient - History of Present Illness Timing/Duration: reports: other (this am) Past History - Past Medical History Allergies/Adverse Reactions: Allergies Allergy/AdvReac Type Severity Reaction Status Date / Time Sulfa (Sulfonamide Allergy Verified 12/12/19 14:47 Antibiotics) Home Medications: Ambulatory Orders Albuterol Sulfate Inhaler - [Ventolin Hfa Inhaler -] 1 - 2 inh PO Q4H #1 inhaler 02/14/19 Albuterol Sulfate Inhaler - [Ventolin HFA Inhaler -] 1 - 2 inh PO Q4H #1 inhaler 07/18/19 predniSONE [Deltasone] 40 mg PO DAILY #8 tablet 07/18/19 Meclizine HCl [Antivert -] 25 mg PO QID PRN #28 tablet 09/11/19 Ondansetron [Zofran *Odt*] 4 mg SL TID PRN #21 od.tablet 09/11/19 predniSONE [Deltasone -] 40 mg PO DAILY #6 tablet 10/25/19 Nitrofurantoin Monohyd/M-Cryst [Macrobid -] 100 mg PO BID #14 capsule 12/12/19 Anemia: Yes (ITP) Asthma: Yes COPD: No - Reproductive History (#): 1 Para: 1 Cervical CA: No Dysfunctional Uterine Bleeding: No Ectopic : No Endometrial CA: No Polycystic Ovaries: No Therapeutic (s) & number: No Tubal Ligation: No - Immunization History Td Vaccination: Yes TDAP Vaccination: Yes Immunization Up to Date: Yes - Psycho Social/Smoking Cessation Hx Smoking History: Never smoked Have you smoked in the past 12 months: No Hx Alcohol Use: No Drug/Substance Use Hx: No Review of Systems - Review of Systems Constitutional: No: Chills, Fever ABD/GI: Yes: Nausea. No: Vomiting, Abdominal cramping : Yes: Frequency. No: Burning, Dysuria, Discharge, Flank Pain, Hematuria *Physical Exam - Vital Signs Last Vital Signs Temp Pulse Resp BP Pulse Ox 98.7 F 82 18 123/73 99 12/12/19 14:45 12/12/19 14:45 12/12/19 14:45 12/12/19 14:45 12/12/19 14:45 - Physical Exam General Appearance: Yes: Appropriately Dressed. No: Apparent Distress HEENT: positive: Normal Voice Neck: positive: Supple Respiratory/Chest: negative: Respiratory Distress Gastrointestinal/Abdominal: positive: Soft. negative: Tender Musculoskeletal: negative: CVA Tenderness Integumentary: positive: Dry, Warm Neurologic: positive: Fully Oriented, Alert, Normal Mood/Affect Medical Decision Making - Medical Decision Making 12/12/19 15:10 24 yo F, recurrent UTIs, here w/ urinary freq w/ nausea this am. No dysuria otherwise and no hematuria, flank pain, f/c. No h/o pyelo. Of note, no +ucx on record here at [facility] see exam Urinary freq Stable No e/o pyelo UA w/ LE and >200 wbc and bld (not on menses) -Will tx based on sxs and f/u on ucx Discharge - Discharge Information Problems reviewed: Yes Clinical Impression/Diagnosis: Urinary frequency Condition: Good Disposition: HOME - Additional Discharge Information Prescriptions: Nitrofurantoin Monohyd/M-Cryst [Macrobid -] 100 mg PO BID #14 capsule - Follow up/Referral - Patient Discharge Instructions Patient Printed Discharge Instructions: DI for Urinary Tract Infection (UTI) - Post Discharge Activity
[2019-12-12 15:15] LABS: HCG,QUALITATIVE URINE Negative
[2019-12-12 20:34] LABS: URINE RBC 30 /hpf (0-4)
== END 2019-12-12 15:26 | disposition home or self-care (01) ==
LOC: JERFT 14:29
DX: R35.0 Frequency of micturition (principal); Z88.2 Allergy status to sulfonamides; J45.909 Unspecified asthma, uncomplicated
CPT/HCPCS: 81003; 84703; 87086; 87186; 99283-25